=== PATIENT | female | born 1970 | race Caucasian/White ===

== ENCOUNTER 2018-09-15 16:42 | Outpatient (REF) | payer BC, SELFPAY ==
[2018-09-15 19:30] LABS: Glucose 110 mg/dL (70-100); TSH 3.48 uIU/mL (0.358-3.74)
== END 2018-09-15 17:02 ==
LOC: NCHCN 16:42
PROVIDERS: PCP Internal Medicine; Visit Provider Internal Medicine
DX: R00.2 Palpitations (principal)
CPT/HCPCS: 82947; 84443

== ENCOUNTER 2021-08-27 14:22 | Outpatient (REF) | payer BC, SELFPAY | END 2021-08-27 14:23 | disposition home or self-care (01) | LOC: NCHCN 14:22 | PROVIDERS: PCP Internal Medicine; Visit Provider Nurse Practitioner Family | DX: R30.9 Painful micturition, unspecified | CPT/HCPCS: 87086 ==

== ENCOUNTER 2023-09-08 13:21 | Outpatient (REF) | payer BC, SELFPAY | END 2023-09-08 13:22 | disposition home or self-care (01) | LOC: NCHCN 13:21 | PROVIDERS: PCP Internal Medicine; Visit Provider Physician Assistant | DX: R30.0 Dysuria (principal) | CPT/HCPCS: 87086 ==

== ENCOUNTER 2023-09-16 16:42 | Outpatient (REF) | payer BC, SELFPAY | END 2023-09-16 16:43 | disposition home or self-care (01) | LOC: NCHCN 16:42 | PROVIDERS: PCP Internal Medicine; Referring Provider Internal Medicine; Visit Provider Internal Medicine | DX: R30.0 Dysuria (principal); R82.89 Other abnormal findings on cytological and histological examination of urine | CPT/HCPCS: 87086 ==

== ENCOUNTER 2024-04-12 14:36 | Outpatient (REF) | payer BC, SELFPAY ==
--- NOTE | 2024-04-12 13:50 | SKI_PTH ---
PATIENT: Ani Cummings LOC: [facility] U#:[id number] AGE/SX: 53/F ROOM: RE04/12/[address]: Antonia Pandey : 1970 BED: DIS: 04/12/2024 SPEC #: [id number] RECD: 04/13/24 11:41 STATUS: WENDY REQ #: [id number] CINDY: 04/12/24 13:[address]: Antonia Pandey DEPT: Surgical Specimen RECD BY: Taylor Lopez ENTERED: 04/13/24 11:43 SP TYPE: LEONEL ESCALANTE DR: Cosme Muñoz Tissues: 1 - SKIN BIOPSY(SHAVE/PUNCH) Procedures: SKIN LEVEL 4 Comments: [id number]
--- OUTSIDE RECORDS SUMMARY | 2024-04-12 14:38 | XMS_ITS | Clinical Summary ---
Author Organization [facility] [place] [address] [place] [address] Care Team Providers Care Therapeutic Recreation Assistant Name Role Phone Cosme Muñoz MD Primary Care Provider Allergies No known active allergies Medications Medication Sig Dispensed Refills Start Date End Date Status multivitamin (THERAGRAN) tablet 12/25/2008 Active Ferrous Sulfate (IRON) 27 mg (Iron) Tab 12/25/2008 Active Social History Tobacco Use Types Packs/Day Years Used Date Smoking Tobacco: Never Assessed Sex and Gender Information Value Date Recorded Sex Assigned at Not on file Gender Identity Not on file Sexual Orientation Not on file Plan of Treatment Health Maintenance Due Date Last Done Comments CT Colonography 1969 Colonoscopy 1969 Colorectal Cancer Screening 1969 FIT DNA 1969 FIT 1969 Sigmoidoscopy (10 year) with FIT yearly 1969 Sigmoidoscopy 1969 HIV screen 1987 Hepatitis C Screening 1987 Hepatitis B vaccine (0-59 yrs) (1) 1988 Tetanus/Diphtheria/Pertussis Vaccines (1 - Tdap) 07/19 HPV test 1999 PAP Smear 1999 Breast Cancer Share Decision Needed 2009 Breast Cancer screening 2009 Zoster vaccine (1 of 2) 2019 Covid-19 Vaccine (1 - season) 2024 Influenza (Flu) vaccine (1 o f 1 - Influenza standard series) 03/18/2024 Care Teams Therapeutic Recreation Assistant Relationship Specialty Start Date End Date Cosme Muñoz MD [address] [place], [place] [id number] PCP - General 06/09/10
--- OUTSIDE RECORDS SUMMARY | 2024-04-12 14:38 | XMS_ITS | Referral Summary ---
Author Organization [facility] Address [address] [place] [address] Care Team Providers Care Upstairs Maid Name Role Phone Cosme Muñoz MD Primary Care Provider [phone] Social History Tobacco Use Types Packs/Day Years Used Date Smoking Tobacco: Never Assessed Sex and Gender Information Value Date Recorded Sex Assigned at Not on file Gender Identity Not on file Sexual Orientation Not on file Plan of Treatment Not on file Ani Cummings Personal/Family Self 1970 [address] [facility] [place] [address] Ani Cummings Personal/Family Self 1970 [address] [facility] [address] Ani Cummings Personal/Family Self 1970 [address] [facility] [place] [address] Care Teams Upstairs Maid Relationship Specialty Start Date End Date Cosme Muñoz MD [address] [place] [address] PCP - General 02/03/15
--- OUTSIDE RECORDS SUMMARY | 2024-04-12 14:38 | XMS_ITS | Continuity of Care Document ---
Author Organization [facility] Address [address] [place] [address] Care Team Providers Care Triage Rn Name Role Phone Cosme Damon Primary Care Physician Encounter [id number] Date(s): 06/25/22 - 06/25/[address] [address] Discharge Disposition: Home or Self Care Attending Physician: Cosme Damon MD Admitting Physician: Cosme Damon MD Referring Physician: Cosme Damon MD Allergies, Adverse Reactions, Alerts No Known Medication Allergies Immunizations Given and Recorded Vaccine Date Status Refusal Reason SARS-CoV-2 (COVID-19) mRNA-1273 vaccine 10/23/20 R ecorded SARS-CoV-2 (COVID-19) mRNA-1273 vaccine 09/25/20 R ecorded tetanus/diphth/pertuss (Tdap) adult/adol 09/30/14 Recorded rubella virus vaccine 07/18/00 Recorded varicella virus vaccine 07/18/00 Recorded Social History Social History Type Response Sex Female Patient Care team information Personnel Name: Cosme Damon MD Address: Address: [facility] [address], [place] [address]
--- OUTSIDE RECORDS SUMMARY | 2024-04-12 14:38 | XMS_ITS | Data Portability ---
Author Organization [place] [facility] [place] [address] Care Team Providers Care Scrap Preparation Supervisor Name Role Phone LASHANDA LLAMAS Dentist YOSEF BREWSTER Primary Care Provider [phone] Assessment Encounter Date Assessment Date Assessment LastModified by Organization Details LastModified Time 03/02/2024 03/02/2024 The patient presents with left shoulder pain, trouble sleeping, and numbness and tingling in the left arm. The pain has increased over time, affecting sleep and daily activities. The patient denies any specific injury but has not been careful with lifting and moving objects. Physical exam reveals tenderness in the anterior shoulder and equal strength bilaterally. [email or web address] Not available 03/02/2024 09:54:26 Plan of Treatment Reminders Order Date Submit Date Provider Last Modified By Organization Details Last Modified Time Details Appointments Acute 30 2023 01:30P M Not available Not available Not available Lab influenza virus A + B + SARS-CoV- 2 (COVID19) Ag panel, rapid IA, upper respirato ry specimen [address], [address] [place] [address], [address], 2023 16:18:35 rapid strep group A, throat [address], [address] [place] [address], [address], 2023 16:18:35 culture, urine + sensitivi ty 2023 [email or web address] (Registration ), [address] [place] [address] [place], [address], 09/15/2023 07:37:52 urinalysi s, dipstick 2023 024 [email or web address] [facility], [address] [facility] [address], [place], [address], 09/08/2023 11:15:13 urinalysi s, dipstick 2023 024 [email or web address] [facility], [address] [facility] [address], [place], [address], 09/16/2023 14:05:33 culture + sensitivi ty, urine 2023 024 [email or web address] (Registration ), [address] [place] [address] [place], [address], 09/23/2023 07:19:04 Referral physical therapist referral 2023 024 [facility], [address] [facility] , [facility] [address], [place], [address], 04/09/2024 14:38:14 Procedures None recorded. Surgeries None recorded. Imaging XR, shoulder, 2 or more view 2023 024 [facility], [address], [place], [address], 03/07/2024 11:42:20 Medication Orders Bactrim DS 800 mg-160 mg tablet 2023 024 [facility], [address], [place], [place], [id number], 03/02/2024 08:09:46 Patient TargetsNo targets recorded. Patient Instructions Encounter Date Encounter Id Patient Instructions Last Modified By Organization Details Last Modified Time 2023 [id number] Push fluids, and take it easy. You are negative for COVID, FLU, and Strep. Push the fluids and use warm packs to your left eye. If no continued improvement please let me know and I will send in eye drops. If no improvement in the rest of your symptoms, please let me know [email or web address] Not available 2023 15:01:52 09/08/2023 [id number] Drink lots of fluids, your urine should have little or no color Take antibiotics until completed, unless you are told to stop by a provider Nitish immediately if you develop fevers, chills, nausea, vomiting, blood in urine or back/flank pain Call back if you are not improving in 24-48 hours [email or web address] Not available 09/08/2023 10:58:18 03/02/2024 [id number] netflix- hack your health the secret to gut health tubi- fed up gluten and dairy free or limit as much as possible increase fruits, vegetables, lean meats, nuts, seeds and eggs. rubi bread in freezer section. The probiotic can be either a supplement or through foods such as kombucha, sally chi, sacindykraut, probiotic juice shots Go to {{[facility] ([facility])* Nisa gaitan [facility] ([facility]) [facility] ([facility]) [facility] ([facility]) [facility] ([facility]) [facility]}} for {{fasting blood work (water or black coffee only for at least 8 hours) bloodwork X-ray* }} (no appointment needed), please allow up to 2 weeks to hear about results A referral has been placed for {{Allergy Audiolo gy Bariatric Card iology Colonoscop y Media Job Titles Endoc rinology ENT Reba roenterology Gene ral Surgery Genetics Hematology/Oncolo gy Nephrology Saira rology CLINICAL STAFF RN Opt ometry/Ophthalmol ogy [facility]oped[facility] Physical [facility]* Podiatry Psychiatry Pulmo nology Rheumatolo gy Sleep Clinic Spine Clinic Urology Va scular Surgery}} at {{[facility] ([facility])* Nisa rn [facility] ([facility]) [facility] ([facility]) [facility] ([facility]) [facility] ([facility]) [facility] ([facility]) [facility]}}. If you do not receive a call to schedule an appointment in 7-10 days, please contact our coding quality coordinator at Call with any questions or concerns lexus Not available 03/02/2024 08:38:49 Reason for Referral Physical Therapist Referral for Pain of left shoulder joint Referring Physician: Antonia Stewart, Family Medicine, Encounter Date: 03/02/2024 Results Created Date Observation Date Name Description Value Unit Range Abnormal Flag Note LastModifiedBy Organization Detail LastModifiedTime 07/19/19 24 2023 influ nathalia virus A + B + SARS- CoV-2 (COVI D19) Ag panel , rapid IA, upper respi rator y speci men Influenza A negati ve Not Available [address], [address], 2023 14:44:47 07/19/19 24 2023 influ nathalia virus A + B + SARS- CoV-2 (COVI D19) Ag panel , rapid IA, upper respi rator y speci men Influenza B negati ve Not Available [address] [address], [place], [address], 2023 14:44:47 07/19/19 24 2023 influ nathalia virus A + B + SARS- CoV-2 (COVI D19) Ag panel , rapid IA, upper respi rator y speci men SARS-COV-2 negati ve Not Available [address], [place], [address], 2023 14:44:47 07/19/19 24 2023 rapid strep group A, throa t Strep negati ve Not Available [facility] [address] [facility] [address], [place], [address], 2023 14:44:58 09/08/19 24 09/09/2023 URINE CULTU RE urine culture Urine Cultu re APPEA FELICIANO Gram Negat scarlet Ayleen APPEA FELICIANO Mixed Gram Posit scarlet Isabelle COLON Y COUNT Not Available [address] [place], [address] 09/09/2023 07:57:14 09/08/19 24 09/09/2023 URINE CULTU RE urine culture colon ies/m L <10,0 00 COLON Y COUNT <10,0 00 Day 1 Resul t ISOLA NIKOLAY BELOW O:GNR (ORGA NISM ID: 1.1) - GRAM NEGAT SCARLET AYLEEN Urine Cultu re (ORGA NISM ID: 1.1) - COLON Y COUNT (ORGA NISM ID: 1.1) - <10,0 00 O:GPF M (ORGA NISM ID: 1.2) - GRAM POSIT SCARLET ISABELLE ,MIXE D Urine Cultu re (ORGA NISM ID: 1.2) - COLON Y COUNT (ORGA NISM ID: 1.2) - <10,0 00 Not Available [address] [place], [address] 09/09/2023 07:57:14 09/08/19 24 09/10/2023 URINE CULTU RE urine culture Urine Cultu re Proba ble conta minat ed colle ction APPEA FELICIANO Gram Negat scarlet Ayleen APPEA FELICIANO Mixed Gram Posit scarlet Isabelle APPEA FELICIANO Gram Negat scarlet Ayleen APPEA FELICIANO Mixed Gram Posit scarlet Isabelle COLON Y COUNT Not Available [address] [place], [address] 09/10/2023 08:09:14 09/08/19 24 09/10/2023 URINE CULTU RE urine culture colon ies/m L <10,0 00 COLON Y COUNT <10,0 00 COLON Y COUNT <10,0 00 COLON Y COUNT 10,00 0 - 50,00 0 Day 1 Resul t ISOLA NIKOLAY BELOW Day 2 Resul t ISOLA NIKOLAY BELOW O:GNR (ORGA NISM ID: 1.1) - GRAM NEGAT SCARLET AYLEEN Urine Cultu re (ORGA NISM ID: 1.1) - COLON Y COUNT (ORGA NISM ID: 1.1) - <10,0 00 O:GPF M (ORGA NISM ID: 1.2) - GRAM POSIT SCARLET ISABELLE ,MIXE D Urine Cultu re (ORGA NISM ID: 1.2) - COLON Y COUNT (ORGA NISM ID: 1.2) - 10,00 0 - 50,00 0 Not Available [facility] [address] [place], [address] 09/10/2023 08:09:14 09/08/19 24 09/08/2023 urina lysis , dipst ick Leukocytes Modera te Not Available [address], [address], 09/08/2023 11:13:06 09/08/19 24 09/08/2023 urina lysis , dipst ick Nitrite negati ve Not Available [facility] [address], [address], 09/08/2023 11:13:06 09/08/19 24 09/08/2023 urina lysis , dipst ick Urobilinogen .2 Not Available [address], [address], 09/08/2023 11:13:06 09/08/19 24 09/08/2023 urina lysis , dipst ick Protein Trace Not Available [address], [address], 09/08/2023 11:13:06 09/08/19 24 09/08/2023 urina lysis , dipst ick pH 5.0 Not Available [address] [place], [address], 09/08/2023 11:13:06 09/08/19 24 09/08/2023 urina lysis , dipst ick Blood Large Not Available [facility] [address] [facility] [address], [place], [address], 09/08/2023 11:13:06 09/08/19 24 09/08/2023 urina lysis , dipst ick Specific [place] 1.025 Not Available [facility] [address] [facility] [address], [place], [address], 09/08/2023 11:13:06 09/08/19 24 09/08/2023 urina lysis , dipst ick Ketone Negati ve Not Available [facility] [address] [facility] [address], [place], [address], 09/08/2023 11:13:06 09/08/19 24 09/08/2023 urina lysis , dipst ick Bilirubin Negati ve Not Available [facility] [address] [facility] [address], [place], [address], 09/08/2023 11:13:06 09/08/19 24 09/08/2023 urina lysis , dipst ick Glucose Negati ve Not Available [facility] [address] [facility] [address], [place], [address], 09/08/2023 11:13:06 09/08/19 24 09/08/2023 urina lysis , dipst ick Appearance Cloudy Not Available [facility] [address] [facility] [address], [place], [address], 09/08/2023 11:13:06 09/08/19 24 09/08/2023 urina lysis , dipst ick Color Dark Yellow Not Available [facility] [address] [address], [place], [address], 09/08/2023 11:13:06 09/16/19 24 09/17/2023 URINE CULTU RE urine culture Urine Cultu re Day 1 Resul t NO GROWT H 24 HOURS Not Available [address] [place], [address] 09/17/2023 06:58:17 09/16/19 24 09/18/2023 URINE CULTU RE urine culture Urine Cultu re APPEA FELICIANO Mixed Gram Posit scarlet Isabelle COLON Y COUNT Not Available [address] [place], [address] 09/18/2023 07:56:30 09/16/19 24 09/18/2023 URINE CULTU RE urine culture colon ies/m L <10,0 00 Day 1 Resul t NO GROWT H 24 HOURS Day 2 Resul t ISOLA NIKOLAY BELOW O:GPF M (ORGA NISM ID: 1.1) - GRAM POSIT SCARLET ISABELLE ,MIXE D Urine Cultu re (ORGA NISM ID: 1.1) - COLON Y COUNT (ORGA NISM ID: 1.1) - <10,0 00 Not Available [address] [place], [address] 09/18/2023 07:56:30 09/16/19 24 09/16/2023 urina lysis , dipst ick Leukocytes Trace Not Available [facility] [address] [address], [place], [address], 09/16/2023 13:55:30 09/16/19 24 09/16/2023 urina lysis , dipst ick Nitrite negati ve Not Available [facility] [address], [address], 09/16/2023 13:55:30 09/16/19 24 09/16/2023 urina lysis , dipst ick Urobilinogen .2 Not Available [facility] [address] [address], [place], [address], 09/16/2023 13:55:30 09/16/19 24 09/16/2023 urina lysis , dipst ick Protein Negati ve Not Available [facility] [address] [facility] [address], [place], [address], 09/16/2023 13:55:30 09/16/19 24 09/16/2023 urina lysis , dipst ick pH 6.0 Not Available [facility] [address] [facility] [address], [place], [address], 09/16/2023 13:55:30 09/16/19 24 09/16/2023 urina lysis , dipst ick Blood Negati ve Not Available [facility] [address] [facility] [address], [place], [address], 09/16/2023 13:55:30 09/16/19 24 09/16/2023 urina lysis , dipst ick Specific [place] 1.010 Not Available [facility] [address] [facility] [address], [place], [address], 09/16/2023 13:55:30 09/16/19 24 09/16/2023 urina lysis , dipst ick Ketone Negati ve Not Available [facility] [address] [facility] [address], [place], [address], 09/16/2023 13:55:30 09/16/19 24 09/16/2023 urina lysis , dipst ick Bilirubin Negati ve Not Available [facility] [address] [facility] [address], [place], [address], 09/16/2023 13:55:30 09/16/19 24 09/16/2023 urina lysis , dipst ick Glucose Negati ve Not Available [facility] [address] [facility] [address], [place], [address], 09/16/2023 13:55:30 09/16/19 24 09/16/2023 urina lysis , dipst ick Appearance Clear Not Available [facility] [address] [facility] [address], [place], [address], 09/16/2023 13:55:30 09/16/19 24 09/16/2023 urina lysis , dipst ick Color Pale Yellow Not Available [facility] [address] [facility] [address], [place], [address], 09/16/2023 13:55:30 03/07/20 24 03/05/2024 XR, shoul victorino, 2 or more view PROCED URE INFORM ATION: Exam: XR Left Should er Exam date and time: 024 8:12 AM Age: 53 years old Clinic al indica tion: Left should er pain TECHNI QUE: Imagin g protoc ol: Radiol ogic exam of the left should er. Views: 2 or more views. COMPAR SANJU: CT SPINE CERVIC AL WO CONTRA ST 09/24/19 10:39 AM FINDIN GS: Bones/ joints : The glenoh umeral and acromi oclavi cular joints are normal ly aligne d. No acute fractu re is seen. Mild joint space narrow ing in the acromi oclavi cular joint. No signif icant joint space narrow ing or osteop hytic format ion in the glenoh umeral joint. Lungs: Visual ized portio ns of the chest are normal . Soft tissue s: Unrema rkable . IMPRES MADELIN: 1. No eviden ce of acute fractu re or disloc ation. 2. Minima l degene rative change s in the acromi oclavi cular joint. Report signed by: Gurdeep Gaines On 2023 11:40: 47 [facility] [address], [place], [address], 03/07/2024 21:44:53 03/30/2011/13/2018 MAMMO , tomos ynthe sis, bilat eral No observ ation record ed. Not Available 03/30 00:59:02 03/30/20 24 11/24/2020 MAMMO , tomos ynthe sis, bilat eral No observ ation record ed. Not Available 03/30 00:59:03 03/30/20 24 06/25/2022 MAMMO , tomos ynthe sis, bilat eral No observ ation record ed. Not Available 03/30 00:59:05 03/30/20 24 06/28/2022 MAMMO , diagn ostic No observ ation record ed. Not Available 03/30 00:59:06 03/30/20 24 06/25/2022 MAMMO , diagn ostic No observ ation record ed. Not Available 03/30 00:59:07 03/30/20 24 09/15/2018 imagi ng/di agnos tic resul t No observ ation record ed. Not Available 03/30 00:59:11 03/30/20 24 07/01/2020 imagi ng/di agnos tic resul t No observ ation record ed. Not Available 03/30 00:59:13 03/30/20 24 05/13/2023 imagi ng/di agnos tic resul t No observ ation record ed. Not Available 03/30 00:59:36 03/30/20 24 09/23/2020 imagi ng/di agnos tic resul t No observ ation record ed. Not Available 03/30 00:59:38 03/30/20 24 06/28/2022 MAMMO , diagn ostic , unila teral No observ ation record ed. Not Available 03/30 00:59:39 03/30/20 24 09/23/2020 CT, brain , w/o contr ast No observ ation record ed. Not Available 03/30 00:59:40 03/30/20 24 07/01/2021 US, pelvi c wall No observ ation record ed. Not Available 03/30 00:59:41 03/30/20 24 05/13/2023 XR, spine No observ ation record ed. Not Available 03/30 00:59:43 Result Notes Documentation Provider Name and Address Organization Details Recorded Time Xr, Shoulder, 2 Or More View : PROCEDURE INFORMATION: Exam: XR Left Shoulder Exam date and time: 03/05/2024 8:12 AM Age: 53 years old Clinical indication: Left shoulder pain TECHNIQUE: Imaging protocol: Radiologic exam of the left shoulder. Views: 2 or more views. COMPARISON: CT SPINE CERVICAL WO CONTRAST 09/23/2020 10:39 AM FINDINGS: Bones/joints: The glenohumeral and acromioclavicular joints are normally aligned. No acute fracture is seen. Mild joint space narrowing in the acromioclavicular joint. No significant joint space narrowing or osteophytic formation in the glenohumeral joint. Lungs: Visualized portions of the chest are normal. Soft tissues: Unremarkable. IMPRESSION: 1. No evidence of acute fracture or dislocation. 2. Minimal degenerative changes in the acromioclavicular joint. Report signed by: Gurdeep Gaines On 03/07/2024 11:40:47 YOSEF BREWSTER MD [address], [place], [address], [facility]. 03/07/2024 15:16:08 Problems Name Problem SNOMED Code Status Onset Date Resolution Date Notes Provider Name and Address Organization Details Recorded Time Family history of malignan t neoplasm of digestiv e organ 407938984 Active 2009 Problem Code: Z80.0; Problem Code Type: ICD-10; Not Available [facility] 3 05:18:17 Acquired absence of cervix and uterus 824472921 Active 2009 Problem Code: Z90.710; Problem Code Type: ICD-10; Not Available [facility] 3 05:18:18 Eczema 38938883 Active 2014 Problem Code: L30.9; Problem Code Type: ICD-10; Not Available [facility] 3 05:18:18 Chronic sinusiti s 41115232 Completed 201612/19/2016 Problem Code: J32.9; Problem Code Type: ICD-10; Not Available [facility] 3 05:18:18 Migraine with aura 5946712 Active 201709/16/19 19 - Comments only - Yosef Brewster MD - Renewed her Imitrex. Pointed out that fluoxeti ne may even service [facility] medicine and reduce the migraine . Problem Code: G43.109; Problem Code Type: ICD-10; Not Available [facility] 3 05:18:18 Effusion of joint of right knee 03362061674 9104 Active 201709/10/19 18 - Comments only - Adeola Felix ASSOCIATE PROFESSOR OF MANAGEMENT - No obvious injury, no joint laxity, there is some swelling and possibly fluid on the knee. Will obtain x-ray, consider ortho for drainage if needed. PT referral . Problem Code: M25.461; Problem Code Type: ICD-10; Not Available [facility] 3 05:18:18 Plantar fascial fibromat osis 88768148 Active 201709/10/19 18 - Comments only - Adeola Felix ASSOCIATE PROFESSOR OF MANAGEMENT - Reviewed rolling with water bottle or tennis ball, ice to relieve discomfo rt, supporti ve shoes. PT referral . Problem Code: M72.2; Problem Code Type: ICD-10; Not Available [facility] 3 05:18:18 Acute conjunct ivitis of left eye [id number] 9105 Completed 201701/05/2018 11/25/19 18 - Comments only - Haris Umana PA-C - Reviewed with the patient that most conjunct ivitis is viral. At this time she would like to start antibiot ics. Advised good handwash ing. Recheck if not improvin g or for any visual changes. Problem Code: H10.32; Problem Code Type: ICD-10; Not Available [facility] 3 05:18:18 Palpitat ions 93266847 Completed 201809/16/2018 09/16/19 19 - Comments only - Yosef Brewster MD - And atypical chest pain, pretty clearly associat ed with her anxiety. She has virtuall y no risk factors, normal EKG, history not suggesti ve of CAD, and I do not think she needs other testing. Problem Code: R00.2; Problem Code Type: ICD-10; Not Available [facility] 05:18:18 Anxiety 92321269 Active 201811/04/19 19 - Comments only - Yosef Brewster MD - Ani his depressi on has clearly been episodic , but I recommen d that she stay on treatmen t for 4-6 months total. Is generall y best to wean off during the summer, therefor e we will plan to have her reduce fluoxeti ne to 10 mg daily in January, and then disconti nue it in February. She is seeing Naldo as well and that is going well. I am not going to see her back then unless she is having trouble, but will count I am seeing her for HME around May , so we can make sure that she is not sliding downward again then. Problem Code: F41.8; Problem Code Type: ICD-10; Not Available [facility] 3 05:18:18 Obesity 433798802 Active 201811/04/19 19 - Comments only - Yosef Brewster MD - Doing great with lifestyl e change and is motivate d to continue . Strong family history of DM, she should have fasting glucose at least annually . It was elevated to prediabe tic levels in September. Problem Code: E66.9; Problem Code Type: ICD-10; Not Available [facility] 3 05:18:18 Screenin g mammogra phy Active 201811/04/19 19 - Comments only - Yosef Brewster MD - Overdue for mammogra m which I ordered. She does not need Pap due to hysterec cintia, but will have her physical this fall as above Problem Code: Z12.31; Problem Code Type: ICD-10; Not Available [facility] 3 05:18:18 Varicose veins of bilatera l lower limbs [id number] 807462 Active 2018 Problem Code: I83.93; Problem Code Type: ICD-10; Not Available [facility] 3 05:18:19 Guttate psoriasi s 58463103 Active 2018 Problem Code: L40.4; Problem Code Type: ICD-10; Not Available [facility] 3 05:18:19 Adult health examinat ines Active 2018 Problem Code: Z00.00; Problem Code Type: ICD-10; Not Available [facility] 3 05:18:19 Gastroes ophageal reflux disease without esophagi tis 255454543 Active 201907/06/20 20 - Comments only - Adeola Poginchristy ASSOCIATE PROFESSOR OF MANAGEMENT - Symptoms of burning in the throat and occasion ally the chest. Worse with certain foods but she has not complete ly kept track. She knows weight gain has not helped either. EKG is normal today. Trial of Nexium every other day. Discusse d importan t trigger foods to avoid. Follow-u p if not improvin g. Problem Code: K21.9; Problem Code Type: ICD-10; Not Available [facility] 3 05:18:19 Dysuria 34359669 Completed 202108/29/2021 08/27/19 22 - Comments only - Keyana Chute ASSOCIATE PROFESSOR OF MANAGEMENT - Dysuria . Urine quite dilute, negative blood, pos WBC. will send for c/s and start nitrofur antoin Ani will let us know INI sx increase . Urine positive for Ketones she has been eating high protein diet in successf ul attempt at weight loss. Problem Code: R30.9; Problem Code Type: ICD-10; Not Available [facility] 3 05:18:19 Abnormal weight loss 586102674 Active 202108/27/19 22 - Comments only - Keyana Chute ASSOCIATE PROFESSOR OF MANAGEMENT - Down about 6.5 pounds since last visit. Ketosuri a due to high protein diet. Discusse d plant based diet as likely more sustaina ble. Problem Code: R63.4; Problem Code Type: ICD-10; Not Available [facility] 3 05:18:19 Counseli ng Active 2021 Problem Code: Z71.89; Problem Code Type: ICD-10; Not Available [facility] 3 05:18:19 Inconclu sive mammogra phy finding 81563453707 9104 Active 2021 Problem Code: R92.2; Problem Code Type: ICD-10; Not Available [facility] 3 05:18:19 Melanocy tic nevus 674780037 Completed 201409/02/2017 Problem Code: D22.9; Problem Code Type: ICD-10; Not Available [facility] 3 05:18:19 Hand pain 60641625 Completed 201509/02/2017 Problem Code: M79.643; Problem Code Type: ICD-10; Not Available [facility] 3 05:18:20 Abnormal finding on evaluati on procedur e 882008105 Completed 201609/02/2017 Problem Code: R89.9; Problem Code Type: ICD-10; Not Available [facility] 3 05:18:20 Irritabl e bowel syndrome 75117045 Completed 201004/13/2023 Not Available [facility] 3 05:18:20 Pain of left wrist 93847514275 9102 Completed 201509/02/2017 Problem Code: M25.532; Problem Code Type: ICD-10; Not Available [facility] 3 05:18:20 Retentio n of urine 311759306 Completed 200804/13/2023 Not Available [facility] 3 05:18:20 Paresthe lowell 56396806 Completed 201609/02/2017 Problem Code: R20.2; Problem Code Type: ICD-10; Not Available [facility] 3 05:18:20 Family history of cancer of colon 559277743 Completed 200904/13/2023 Not Available [facility] 3 05:18:20 Upper respirat ory infectio n 37228506 Active [address], [place], [address] , [facility]. 4 15:00:09 Cough 59936591 Active 2023 KEYANA LANTIGUA, [address], [place], [address] , [place] - [facility]. 4 16:23:23 Cough 03807858 Completed 202204/27/2023 04/26/20 23 - Comments only - Antonia MCMILLAN - Negative COVID and flu. O2 sats were normal at 98%. Benign exam. Likely viral. Recommen ded nasal saline rinses and Flonase over-the -counter . Plenty of rest and fluids. Tylenol or ibuprofe n as needed for pain/fev er. Discusse d signs and symptoms to follow-u p. Patient understa nds agrees with plan. Problem Code: R05.8; Problem Code Type: ICD-10; Not Available [facility] 4 05:37:22 Low back pain 660443198 Active 2022 Problem Code: M54.59; Problem Code Type: ICD-10; Not Available [facility] 4 05:37:22 Pain of left hip joint 60526867924 9100 Active 2022 Problem Code: M25.552; Problem Code Type: ICD-10; Not Available [facility] 4 05:37:22 Dyspnea 098194282 Completed 202206/28/2023 Problem Code: R06.02; Problem Code Type: ICD-10; Not Available [facility] 4 05:37:23 Notes:*Problem Name: Abd Hys t For Fibroids *ICD-10 Codes: *Problem Status: inactive *Comments: *Note Date: 06/26/2010 *Problem Name: Kydney Stones *ICD-10 Codes: *Problem Status: inactive *Comments: *Note Date: 08/02/2011 *Problem Name: Kydney Stones *ICD-10 Codes: *Problem Status: inactive *Comments: *Problem Code Type: CPT *Note Date: 08/02/2011 Problem Notes None recorded. Procedures Surgical History Date Name Laterality Status Provider Name and Address Organization Details Recorded Time 4 Shave Biopsy active ANTONIA STEWART PA-C [address], [place], [address], [place] [facility] 04/12/2024 14:19:14 hysterectomy completed JAY ZAVALA [place] [facility]. 09/08/2023 10:35:44 Imaging Results Imaging Date Name Status LastModified by Organiz ation Details LastModified Time 03/05/2024 XR, shoulder, 2 or more view completed [facility] [address], [place], [address], 03/07/2024 21:44:53 11/13/2018 MAMMO, tomosynthesis, bilateral completed Information not available 03/30/2024 00:59:02 11/24/2020 MAMMO, tomosynthesis, bilateral completed Information not available 03/30/2024 00:59:03 06/25/2022 MAMMO, tomosynthesis, bilateral completed Information not available 03/30/2024 00:59:05 06/28/2022 MAMMO, diagnostic completed Information not available 03/30/2024 00:59:06 06/25/2022 MAMMO, diagnostic completed Information not available 03/30/2024 00:59:07 09/15/2018 imaging/diagnos tic result completed Information not available 03/30/2024 00:59:11 07/01/2020 imaging/diagnos tic result completed Information not available 03/30/2024 00:59:13 05/13/2023 imaging/diagnos tic result completed Information not available 03/30/2024 00:59:36 09/23/2020 imaging/diagnos tic result completed Information not available 03/30/2024 00:59:38 06/28/2022 MAMMO, diagnostic, unilateral completed Information not available 03/30/2024 00:59:39 09/23/2020 CT, brain, w/o contrast completed Information not available 03/30/2024 00:59:40 07/01/2021 US, pelvic wall completed Informati on not available 03/30/2024 00:59:41 05/13/2023 XR, spine completed Information no t available 03/30/2024 00:59:43 Procedure Notes None recorded. Medical Equipment None Reported. Allergies Allergen ID Allergen Name Allergen Category Reaction Reaction Severity Criticality Documentation Date Start Date Code Code System Note Provider Name and Address Organization Details Recorded Time 55843 Medicinal product containin g penicilli n and acting as antibacte rial agent (product) medicatio n itching Not available Not available 2023 09564 05 SNOMED JUAN BEATTY LPN [facility]. 14:42:52 Medications Name Sig Start Date Stop Date Status Note LastModified by Organization Details LastModified Time Prescript ion - Renewal 04/12 completed SUMATRIP NOEL SUCCINAT E 50 MG ORAL TABLET Not Available Not Available Not Available clindamyc in HCl 300 mg capsule 07/19 completed Not Available Not Available Not Available ibuprofen 800 mg tablet 1 three times daily 11/08 completed Not Available Not Available Not Available fluticaso ne propionat e 0.05 % topical cream Apply daily to affected area as directed : L ankle 07/01 completed Not Available Not Available Not Available Zithromax 250 mg tablet Take 2 by mouth today, then take 1 by mouth daily x 4 days 11/23 completed Not Available Not Available Not Available sumatript an 50 mg tablet TAKE 1 TABLET BY MOUTH AT ONSET OF MIGRAINE . MAY REPEAT IN 2 HOURS FOR 1 TIME 2023 active Not Available Not Available Not Avai lable penicilli n V potassium 500 mg tablet Take one tab by mouth three times a day 07/19 completed Not Available Not Available Not Available amitripty line 25 mg tablet 1 hs 09/20 completed Not Available Not Available Not Available erythromy osmany 5 mg/gram (0.5 %) eye ointment Apply to affected eye(s) three times a day Fill at IP 12/04 completed Not Available Not Available Not Available triamcino lone acetonide 0.1 % topical ointment Apply to skin once a day 07/19 completed Not Available Not Available Not Available fluoxetin e 10 mg capsule Take 1 tab by mouth daily for one month then stop the drug ( in January) 06/08 completed Not Available Not Available Not Available lorazepam 1 mg tablet Take 1.5 tablet by mouth single dose 30-60 min before flight,r epeat for return trip. Do not mix with any alcohol 11/06 completed Not Available Not Available Not Available fluoxetin e 20 mg capsule Take 1 tab by mouth daily 06/08 completed Not Available Not Available Not Available loratadin e 10 mg tablet 1 daily 07/02 completed Not Available Not Available Not Available naproxen 500 mg tablet Take 1 tablet twice daily as needed 07/01 completed Not Available Not Available Not Available Flexeril 10 mg tablet 1 TAB at bedtime 12/30 completed Not Available Not Available Not Available esomepraz ole magnesium 20 mg capsule,d elayed release Take 1 capsule by mouth every other day 07/19 completed Not Available Not Available Not Available Bactrim DS 800 mg-160 mg tablet 1 TAB twice daily for 7 days 03/02 completed Not Available Not Available Not Available cyclobenz aprine 5 mg tablet Take 1-2 tablet by mouth at bedtime as needed for low back pain 09/08 completed pt reports not taking Not Available Not Available Not Available Premarin 0.625 mg tablet Take 1 tab by mouth once daily 11/18 completed Pt unsure of dose. Will call with [employer]. Not Available Not Available Not Available nitrofura ntoin monohydra te/macroc rystals 100 mg capsule Take 1 capsule by mouth twice a day 07/19 completed Not Available Not Available Not Available Questran Light 1-2 scoops qd 12/02 completed Not Available Not Available Not Available Vitals Date Recorded Body temperature Oxygen saturation Oxygen saturation in Arterial blood by Pulse oximetry Heart rate Respiratory rate Systolic blood pressure Diastolic blood pressure Provider Name and Address Organization Details Last Updated DateTime 4 97.7 [degF] 99 % 99 % 72 /min 18 /min 142 mm[Hg] 100 mm[Hg] JUAN BEATTY LPN [facility] 4 14:41:55 Date Recorded Body height Body mass index (BMI) Body weight Oxygen saturation Oxygen saturation in Arterial blood by Pulse oximetry Heart rate Body temperature Systolic blood pressure Diastolic blood pressure Provider Name and Address Organization Details Last Updated DateTime 4 159.385 cm 37.2 kg/m2 53312.3 7 g 96 % 96 % 72 /min 98.5 [degF] 124 mm[Hg] 68 mm[Hg] JAY ZAVALA MA [facility] 4 10:37:19 Date Recorded Body height Body mass index (BMI) Body weight Oxygen saturation Oxygen saturation in Arterial blood by Pulse oximetry Heart rate Systolic blood pressure Diastolic blood pressure Provider Name and Address Organization Details Last Updated DateTime 4 159.39 cm 36.2 kg/m2 87739.9 2 g 95 % 95 % 76 /min 120 mm[Hg] 72 mm[Hg] Francois Fermin RN [facility] 4 08:11:03 Date Recorded Body height Body mass index (BMI) Body weight Body temperature Respiratory rate Oxygen saturation Oxygen saturation in Arterial blood by Pulse oximetry Heart rate Systolic blood pressure Diastolic blood pressure Provider Name and Address Organization Details Last Updated DateTime 4 159.39 cm 36.6 kg/m2 02462.4 4 g 97.2 [degF] 18 /min 98 % 98 % 80 /min 110 mm[Hg] 60 mm[Hg] JUAN BEATTY LPN [facility], [facility] 4 13:36:58 Social History Question Answer Notes LastModified by Organizat ion Details LastModified Time Tobacco Smoking Status Never Smoker JUAN BEATTY LPN [facility], [facility], [facility] 2023 14:45:11 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 04/12/2024 Information not available 04/12/2024 Has Tobacco Cessation Counseling Been Provided? No Information not available 04/12/2024 Sex: Female Functional Status None recorded. Mental Status None recorded. Family History Relationship Description Onset Age of this Age Resolved Age Notes LastModified by Organization Details LastModified Time Mother Family history of Arthritis [email or web address] Not available 2022 03:52:25 Mother Family history of malignant neoplasm of uterus [email or web address] Not available 2022 03:52:25 Mother Family history of heart failure [email or web address] Not available 2022 03:52:26 Mother Family history of diabetes mellitus type 1 [email or web address] Not available 2022 03:52:26 Father Family history of cancer of colon [email or web address] Not available 2022 03:52:25 Notes:*Problem: Father: DM, 2002 r/t colon Ca. Medical History No medical history recorded. Gynecological HistoryNo gynecological history recorded. Obstetrics History GPAL:G 0 P 0 0 0 0 Immunizations Vaccine Type Date Status Provider Name and Address Organization Details Recorded Time Tdap 09/20/2012 completed Not Available [facility] 06:02:42 Influenza, split virus, quadrivalent, PF 04/23/2020 completed Not Available [facility] 05/27/2023 06:02:42 Influenza, split virus, quadrivalent, PF 06/08/2019 completed Not Available [facility] 05/27/2023 06:02:42 Influenza, split virus, quadrivalent, PF 06/29/2022 completed Not Available [facility] 05/27/2023 06:02:42 Influenza, split virus, quadrivalent, PF 07/09/2021 completed Not Available [facility] 05/27/2023 06:02:42 COVID-19, mRNA, LNP-S, PF, 100 mcg/0.5mL dose or 50 mcg/0.25mL dose 09/25/2020 completed Not Available [facility] 05/27/2023 06:02:42 COVID-19, mRNA, LNP-S, PF, 100 mcg/0.5mL dose or 50 mcg/0.25mL dose 10/23/2020 completed Not Available [facility] 05/27/2023 06:02:42 COVID-19, mRNA, LNP-S, PF, 100 mcg/0.5mL dose or 50 mcg/0.25mL dose 05/19/2021 completed Not Available [facility] 05/27/2023 06:02:42 COVID-19, mRNA, LNP-S, bivalent, PF, 30 mcg/0.3 mL dose 06/29/2022 completed Not Available [facility] 05/27/2023 06:02:43 Influenza, split virus, quadrivalent, PF 05/11/2023 completed Not Available [facility] 07/29/2023 05:31:26 COVID-19, mRNA, LNP-S, PF, tj-sucrose, 30 mcg/0.3 mL 05/11/2023 completed Not Available [facility] 07/29/2023 05:31:26 Past Encounters Encounter ID Performer Location Encounter Start Date Encounter Closed Date Diagnosis/Indication Diagnosis SNOMED-CT Code Diagnosis ICD10 Code [id number] NITIN BENÍTEZ[address] [address] 2023 14:34:57 2023 15:03:39 Cough 80561429 R05.9 Upper resp iratory infection 50942282 J06.9 [id number] ANTONIA STEWART [address] [address] 09/08/2023 10:25:33 09/08/2023 10:56:03 Dysuria 91999072 R30.0 [id number] Francois Fermin RN [address] [address] 09/16/2023 13:37:40 09/16/2023 14:04:11 Dysuria 18227970 R30.0 [id number] ANTONIA STEWART [address] [address] 03/02/2024 08:00:46 03/02/2024 08:42:21 Pain of left shoulder joint 9726385162 4799522 M25.512 Obesity 221295220 E66.9 [id number] ANTONIA STEWART PA-C [facility] [address] [place] [address] 04/12/2024 13:33:49 04/12/2024 14:04:51 Migraine with aura 6263557 G43.109 Neoplasm o f uncertain behavior of skin 42100843 D48.5 Health Concerns Section Related Observation LastModified by Organization Detai ls LastModified Time None Recorded Concern Status LastModified by Organization Details LastModified Time None Recorded Advance Directives Directive None Recorded Payers Encounter Date Sequence Insurance Name Policy Number Policy Verma Covered Member ID Verma Member ID Guarantor Name 2023 1 [place] [facility] [id number] Ani L Cummings [id number] Ani L Cummings 09/08/2023 1 [place] [facility] [id number] Ani L Cummings [id number] Ani L Cummings 09/16/2023 1 [place] [facility] [id number] Ani L Cummings [id number] Ani L Cummings 03/02/2024 1 [place] [facility] [id number] Ani L Cummings [id number] Ani L Cummings Notes Date Note Type Note Provider Name and Address Organization Details Recorded Time 2023 text/html HPI Notes: cc So re throat, itchy eye., sinus pain Sinus pain and rhinitis started last week, has been having PND. Seemed to get better, now worse again. No fever, has had chills and feels achy. 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 Patient states symptoms started Harrison naren. Sinus headache and runny nose. Questions sinus infection [address], [place], [address], [place] [facility]. 2023 16:24:06 09/08/2023 text/html HPI Notes: CC: U TI Symptoms. Pt reports burning w/ urination along with back pain on and off for the last two weeks. She is also experiencing increased frequency, urgency, and pain. She saw blood in her urine this morning and decided she needed to come in. Has taken OTC Cystex. with some relief of symptoms. She describes her back pain as an ache going across her back along the area of her bra strap. She took motrin a couple of nights with relief. She denies fevers/chills, has been experiencing increased sweatiness. Denies abd pain, nausea, vomiting, diarrhea. [address], [place], [address], [facility] 09/08/2023 11:31:57 03/02/2024 text/html HPI Notes: Stacy epstein presents with left shoulder pain, trouble sleeping, numbness and tingling in left arm, and interest in weight loss. Left shoulder pain: Patient started experiencing left shoulder pain in late spring. Initially, there was limited movement but now the pain has increased. The patient has trouble sleeping and cannot sleep on the left shoulder. Holding objects and reaching in certain directions are uncomfortable. The pain sometimes radiates to the clavicle and down the arm. The patient denies any specific injury but admits to not being careful with lifting or moving objects. Patient has been taking Motrin 800mg BID and Salonpas to help with pain relief. 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
--- OUTSIDE RECORDS SUMMARY | 2024-04-12 14:38 | XMS_ITS | Clinical Summary ---
Author Organization [facility] Address [address] [place] [address] Care Team Providers Care Cartography Supervisor Name Role Phone Cosme Muñoz MD Primary Care Provider [phone] Social History Tobacco Use Types Packs/Day Years Used Date Smoking Tobacco: Never Assessed Sex and Gender Information Value Date Recorded Sex Assigned at Not on file Gender Identity Not on file Sexual Orientation Not on file Plan of Treatment Health Maintenance Due Date Last Done Comments Hepatitis C Screen 1970 Hepatitis B Vaccine (1 of 3 - 19+ 3-dose series) 07/19 COVID-19 Vaccine (2022- season) 2023 Care Teams Cartography Supervisor Relationship Specialty Start Date End Date Cosme Muñoz MD [address] [place] [address] PCP - General 02/03/15
--- OUTSIDE RECORDS SUMMARY | 2024-04-12 14:38 | XMS_ITS | Encounter Summary ---
Author Organization [facility] [address] Care Team Providers Care Chemical Pumper Name Role Phone Cosme Muñoz MD Primary Care Provider Reason for Visit * Consultation (Routine) - Closed Specialty Diagnoses / Procedures Referred By Rakesh alejandra Referred To Contact General Surgery Diagnoses Obesity, unspecified OBESITY - BARIATRIC SURGERY PROGRAM Cosme Muñoz MD [address] [place] [address] [facility] [address] [place] [address] Referral ID Status Reason Start Date Expiration Date V isits Requested Visits Authorized [id number] Closed Consult, Test & Treat Connection Center PCP Updated and/or Approved 06/08/2019 06/07/2020 1 1 Encounter Details Date Type Department Care Team (Late st Contact Info) Description 06/22/2019 2:00 PM EST Notes [place] [address] Social History Tobacco Use Types Packs/Day Years Used Date Smoking Tobacco: Never Assessed Sex and Gender Information Value Date Recorded Sex Assigned at Not on file Gender Identity Not on file Sexual Orientation Not on file documented as of this encounter Progress Notes * Melody Arriaga - 06/22/2019 2:00 PM EST Bariatric - Intro Form 06/22/19 documented in this encounter Plan of Treatment Not on file documented as of this encounter Visit Diagnoses Not on filedocumented in this encounter Care Teams Chemical Pumper Relationship Specialty Start Date End Date Cosme Muñoz MD [address] [place] [address] PCP - General 06/09/10 documented as of this encounter
--- OUTSIDE RECORDS SUMMARY | 2024-04-12 14:38 | XMS_ITS | Continuity of Care Document ---
Author Organization [facility] Address [address] [place] [address] Care Team Providers Care Machine Maintenance Repairer Name Role Phone Cosme Damon Primary Care Physician Encounter [id number] Date(s): 05/13/23 - 05/13/[address] [address] Discharge Disposition: Home or Self Care Attending Physician: Keyana Lundberg NP Admitting Physician: Keyana Lundberg NP Referring Physician: Keyana Lundberg FULL TIME BABYSITTER Allergies, Adverse Reactions, Alerts No Known Medication Allergies Assessment and Plan Future Appointments Immunizations Given and Recorded Vaccine Date Status Refusal Reason SARS-CoV-2 (COVID-19) mRNA-1273 vaccine 10/23/20 R ecorded SARS-CoV-2 (COVID-19) mRNA-1273 vaccine 09/25/20 R ecorded tetanus/diphth/pertuss (Tdap) adult/adol 09/30/14 Recorded rubella virus vaccine 07/18/00 Recorded varicella virus vaccine 07/18/00 Recorded Social History Social History Type Response Sex Female Patient Care team information Care Team Personnel Name: Cosme Damon MD Position: No Access Member Role: Informed Provider Address: Address: [facility] [address] [place] [address]- Care Team Related Persons Name: ALFREDO MEANS Address: Home [address] [place], [id number]
--- OUTSIDE RECORDS SUMMARY | 2024-04-12 14:38 | XMS_ITS | Encounter Summary ---
Author Organization [facility] Address [address] [place] [address] Care Team Providers Care Outplacement Consultant Name Role Phone Cosme Muñoz MD Primary Care Provider [phone] Encounter Details Date Type Department Care Team (Late st Contact Info) Description 06/19/2021 Lab Requisition [facility] Pathology & Laboratory Medicine - [address] [address] Bonnie Merritt MD [address] [place] [address] [phone] Encounter for other general examination Social History Tobacco Use Types Packs/Day Years Used Date Smoking Tobacco: Never Assessed Sex and Gender Information Value Date Recorded Sex Assigned at Not on file Gender Identity Not on file Sexual Orientation Not on file documented as of this encounter Plan of Treatment Not on file documented as of this encounter Procedures Procedure Name Priority Date/Time Associated Diagnosis Comments SURGICAL PATHOLOGY Today 06/19/2021 14 :16 EST documented in this encounter Results * SURGICAL PATHOLOGY (06/19/2021 14:16 EST) Note to Patient The following pathology results have been interpreted by your pathologist and may be available to you before your health provider has had the opportunity to review them. Please allow time for your provider to receive these results and explore management options, if applicable. 06/29/2021 7:08 [facility] Final Diagnosis A. VAGINA, VAGINAL CUFF, BIOPSY: - Squamous mucosa with erosion and dense subepithelial chronic inflammatory infiltrate. See comment. - Negative for dysplasia 06/29/2021 7:08 [facility] Diagnosis Comment Histologic sections show squamous epithelium with focal erosion and reactive changes, with a dense subepithelial chronic inflammatory infiltrate composed of mixed small lymphocytes occasional histiocytes. No significant acute inflammation or eosinophils are identified. PAS-amylase is negative for fungal organisms. Deeper levels have been examined. Sales And Marketing Agent slides of this case were reviewed at the intradepartmental consultation conference. Immunoperoxidase stains were performed on this case to further characterize the lesion. ANTIBODY(CLONE)(BLO CK):RESULT CD3 (SP7, [employer]) (A1): Predominance of small, T-lymphocytes CD20 (L26, [employer]) (A1): Mixed small B-lymphocytes NOTE: One or more of the reagents used in immunoperoxidase testing in this case may not have been cleared or approved by the U.S. Food and Drug Administration (FDA). The FDA has determined that such clearance or approval is not necessary. These tests are used for clinical purposes. They should not be regarded as investigational or for research. These reagents' performance characteristics have been determined by [facility] and/or by the referring laboratory. The positive and negative controls worked appropriately. If immunoperoxidase staining has been performed on alcohol fixed cytology specimens, which has not been fully validated, the assays should be interpreted with caution and correlated with clinical data. This laboratory is certified under the Clinical Laboratory Improvement Amendments of 1988 (CLIA-88) as qualified to perform high complexity clinical laboratory testing. 06/29/2021 7:08 [facility] Attestation There was significant resident/fellow involvement in the diagnostic evaluation of this case. By the signature below, the attending physician certifies that they have personally conducted a gross and/or microscopic examination of the described specimens and rendered or confirmed the above diagnosis. 06/29/2021 7:08 [facility] at 0708 Clinical History Punctate erythemic area at vaginal cuff 06/29/2021 7:08 [facility] Gross Description A. Received in formalin labelled with proper patient identification (initials W, L) and not otherwise specified is a single firm chance-white focally brown tissue fragment (0.5 x 0.3 x 0.2 cm). Submitted intact in A1. MICHELLE ARZOLA MD 06/22/2021 9:44 06/29/2021 7:08 EST [facility] Resident/Fell ow: Michelle Arzola MD 06/29/2021 7:08 EST [facility] Performing Lab [facility] 06/29/2021 7:08 EST [facility] Scanned Images 06/29/2021 7:08 EST [facility] Tissue ENTIRE VAGINA / Unknown 06/19/2021 14:16 EST 06/20/2021 10:38 EST Bonnie Merritt MD PATHOLOGY ORDSaurav MCMANUS [facility] [address] [place] [address] documented in this encounter Visit Diagnoses Diagnosis Encounter for other general examination documented in this encounter Care Teams Outplacement Consultant Relationship Specialty Start Date End Date Cosme Muñoz MD [address] [place] [address] PCP - General 02/03/15 documented as of this encounter
--- OUTSIDE RECORDS SUMMARY | 2024-04-12 14:38 | XMS_ITS | Encounter Summary ---
Author Organization [facility] Address [address] [place] [address] Care Team Providers Care Radiographer Angiogram Name Role Phone Cosme Muñoz MD Primary Care Provider [phone] Encounter Details Date Type Department Care Team (Late st Contact Info) Description 11/11/2020 Lab Requisition [facility] Pathology & Laboratory Medicine - [address] [address] Outr Resulting Lab, Provider Social History Tobacco Use Types Packs/Day Years Used Date Smoking Tobacco: Never Assessed Sex and Gender Information Value Date Recorded Sex Assigned at Not on file Gender Identity Not on file Sexual Orientation Not on file documented as of this encounter Plan of Treatment Not on file documented as of this encounter Procedures Procedure Name Priority Date/Time Associated Diagnosis Comments ZZCOVID-19 TEST [facility] PCR Today 11/11/2020 16:02 EDT COVID-19 TESTING Routine 11/11/2020 16:0 2 EDT documented in this encounter Results * COVID-19 TEST [facility] PCR (11/11/2020 16:02 EDT) Swab ENTIRE NASOPHARYNX / Unknown 11/11/2020 16:02 EDT 11/11/2020 21:09 EDT Provider Outr Resulting Lab MICROBIOLOGY - GENERAL ORDERABLES [facility] [address] [place] [address] * COVID-19 TESTING (11/11/2020 16:02 EDT) COVID-19 rt-PCR Result Negative Negative 11/12/2020 16:05 EDT [facility] Comment: This test has not been FDA cleared or approved. This test has been authorized by FDA under an EUA for use by authorized laboratories. This test has been authorized only for detection of nucleic acid from 2019-nCoV, not for any other viruses or pathogens. This test is only authorized for the duration of the declaration that circumstances exist justifying the authorization of emergency use of in vitro diagnostic tests for detection and/or diagnosis of 2019-nCoV under section 564(b)(1) of Act, 21 U.S.C ?? 360bbb-3(b) (1), unless the authorization is terminated or revoked sooner. Negative results do not preclude 2019-nCoV infection and should not be used as the sole basis for treatment or other patient management decisions. Negative results must be combined with clinical observations, patient history, and epidemiological information. Testing was performed using the edinson SARS-CoV-2 assay ([employer] on the Edinson 6800 System Performing Lab Edinson 6800 [facility] 11/12/2020 16:05 EDT [facility] Swab 11/11/2020 16:0 2 EDT 11/11/2020 21:09 EDT Provider Outr Resulting Lab MICROBIOLOGY - GENERAL ORDERABLES Performing Organization Address City/State/[facility] Co de Phone Number [facility] [address] [place] [address] documented in this encounter Visit Diagnoses Not on filedocumented in this encounter Care Teams Radiographer Angiogram Relationship Specialty Start Date End Date Cosme Muñoz MD [address] [place] [address] PCP - General 02/03/15 documented as of this encounter
--- OUTSIDE RECORDS SUMMARY | 2024-04-12 14:38 | XMS_ITS | Continuity of Care Document ---
Author Organization [facility] Address [address] [place] [address] Care Team Providers Care Recruiter Name Role Phone Cosme Damon Primary Care Physician Encounter [place] Date(s): 06/28/22 - 06/28/[address] [address] Encounter Diagnosis Inconclusive mammogram(Discharge Diagnosis) - 06/28/22 Discharge Disposition: Home or Self Care Attending [...] Personnel Name: Cosme Damon MD Address: Address: [facility] [address] [place], [place] [address]
--- OUTSIDE RECORDS SUMMARY | 2024-04-12 14:39 | XMS_ITS | Encounter Summary ---
Author Organization [facility] Address [address] [place] [address] Care Team Providers Care Diagrammer Name Role Phone Unavailable Primary Care Provider Unavailabl e Encounter Details Date Type Department Care Team (Latest Contact Info) Description 01/30/2015 16:12 EDT - 01/30/2015 23:59 EDT Hospital Encounter [address] [address] Unknown, Provider, Discharge Disposition: Home or Self Care Social History Tobacco Use Types Packs/Day Years Used Date Smoking Tobacco: Never Assessed Sex and Gender Information Value Date Recorded Sex Assigned at Not on file Gender Identity Not on file Sexual Orientation Not on file documented as of this encounter Discharge Disposition Disposition Code Departure Means Destination Home or Self Long-Term documented in this encounter Plan of Treatment Not on file documented as of this encounter Visit Diagnoses Not on filedocumented in this encounter
--- OUTSIDE RECORDS SUMMARY | 2024-04-12 14:39 | XMS_ITS | Encounter Summary ---
Author Organization [facility] Address [address] [place] [address] Care Team Providers Care Proof Technician Name Role Phone Unavailable Primary Care Provider Unavailabl e Encounter Details Date Type Department Care Team (Late st Contact Info) Description 11/16/2006 Results Only [facility] - [place] conversion [address] [place] [address] Ramon Isaacs APRN Social History Tobacco Use Types Packs/Day Years Used Date Smoking Tobacco: Never Assessed Sex and Gender Information Value Date Recorded Sex Assigned at Not on file Gender Identity Not on file Sexual Orientation Not on file documented as of this encounter Plan of Treatment Not on file documented as of this encounter Procedures Procedure Name Priority Date/Time Associated Diagnosis Comments HPV DETECTION, HIGH RISK TYPES Routine 11/16/2006 12:11 EDT CYTOPATHOLOGY Routine 11/16/2006 0:00 EDT documented in this encounter Results * HUMAN PAPILLOMA VIRUS DNA TEST (11/16/2006 12:11 EDT) Specimen Description Cervix, ThinPrep vial [facility] Result Negative for HPV types 16, 18, 31, 33, 35, 39, 45, 51, 52, 56, 58, 59, and 68. [facility] Report Status Final [id number] [facility] 11/16/2006 12:1 1 EDT 11/24/2006 12:11 EDT Ramon Isaacs APRN MICROBIOLOGY - GENERAL ORDERABLES [facility] [address] [place] [address] * CYTOPATHOLOGY (11/16/2006 0:00 EDT) Pathology Report: CYTOPATHOLOGY REPORT Reports generated via electronic interface contain original data; however they are lacking the format of the original report. Caution should be taken when reading/interpreti ng unformatted reports. Name: ? MEANS ANI ? Accession #: ? [id number] : ? 1970 (Age: 36) ??F ?Collect Date: ? 11/16/2006 Location: ? [facility] ? Receive Date: ? 11/18/2006 Provider: ?RAMON ISAACS CORRESPONDENCE CLERK Copy to: ? Specimen/Source: ?ThinPrep Pap Test, Cervix/Endocervix, processed on [employer] ThinPrep Imaging System, with manual evaluation Last Menstrual Period: ? 10/30/06 Other: ? Additional clinical information: Previous pap WNL HPVDX - HPV testing requested regardless of diagnosis on current ThinPrep Pap test. ? SPECIMEN ADEQUACY ? Satisfactory for Evaluation - transformation zone component present - scant squamous epithelial component secondary to excessive inflammation GENERAL CATEGORIZATION ? Negative for Intraepithelial Lesion or Malignancy INTERPRETATION ? Reactive cellular changes associated with inflammation present (includes repair). ? Document reviewed and electronically signed by: ? MARI JIMENEZ MD ? Report Date: ??11/23/2006 15:48 End of Report [facility] 11/16/2006 11/18/2006 Ramon Isaacs APRN PATHOLOGY ORDER SOHAIL [facility] [address] [place] [address] documented in this encounter Visit Diagnoses Not on filedocumented in this encounter
--- OUTSIDE RECORDS SUMMARY | 2024-04-12 14:39 | XMS_ITS | Encounter Summary ---
Author Organization [facility] Address [address] [place] [address] Care Team Providers Care Middle [employer] Professional Name Role Phone Unavailable Primary Care Provider Unavailabl e Encounter Details Date Type Department Care Team (Late st Contact Info) Description 03/30/2004 Results Only [facility] - Map conversion [address] [place] [address] Marysol, October, CN [address] [place] [address] Social History Tobacco Use Types Packs/Day Years Used Date Smoking Tobacco: Never Assessed Sex and Gender Information Value Date Recorded Sex Assigned at Not on file Gender Identity Not on file Sexual Orientation Not on file documented as of this encounter Plan of Treatment Not on file documented as of this encounter Procedures Procedure Name Priority Date/Time Associated Diagnosis Comments CYTOPATHOLOGY Routine 03/30/2004 0:00 EDT documented in this encounter Results * CYTOPATHOLOGY (03/30/2004 0:00 EDT) Pathology Report: CYTOPATHOLOGY REPORT Reports generated via electronic interface contain original data; however they are lacking the format of the original report. Caution should be taken when reading/interpreti ng unformatted reports. Name: ? MEANS ANI ? Accession #: ? [id number] : ? 1970 (Age: 33) ??F ?Collect Date: ? 03/30/2004 Location: ? [facility] ? Receive Date: ? 04/01/2004 Provider: ?KERA GREGG CNM Copy to: ? Specimen/Source: ?ThinPrep Pap Test, Cervix/Endocervix Last Menstrual Period: ? 03/14/2004 Other: ? HPVA - HPV testing requested if ASC-US on the current ThinPrep Pap test. ? SPECIMEN ADEQUACY ? Satisfactory for Evaluation - transformation zone component present GENERAL CATEGORIZATION ? Negative for Intraepithelial Lesion or Malignancy ? Document reviewed and electronically signed by: ? Audrey Parrish, ARJUN(ASCP)(IAC) ? Report Date: ??04/06/2004 17:01 End of Report [facility] 03/30/2004 04/01/2004 Kera Gregg CNM PATHOLOGY ORDERABLES [facility] [address] [place] [address] documented in this encounter Visit Diagnoses Not on filedocumented in this encounter
--- OUTSIDE RECORDS SUMMARY | 2024-04-12 14:39 | XMS_ITS | Encounter Summary ---
Author Organization [facility] Address [address] [place] [address] Care Team Providers Care Magazine Repairer Name Role Phone Unavailable Primary Care Provider Unavailabl e Encounter Details Date Type Department Care Team (Late st Contact Info) Description 01/30/2015 Results Only [facility] [phone] Yosef Muñoz MD [address] [place] [address] Social History Tobacco Use Types Packs/Day Years Used Date Smoking Tobacco: Never Assessed Sex and Gender Information Value Date Recorded Sex Assigned at Not on file Gender Identity Not on file Sexual Orientation Not on file documented as of this encounter Plan of Treatment Not on file documented as of this encounter Procedures Procedure Name Priority Date/Time Associated Diagnosis Comments SURGICAL PATHOLOGY Routine 01/30/2015 8:50 EDT documented in this encounter Results * SURGICAL PATHOLOGY (01/30/2015 8:50 EDT) Pathology Report: SURGICAL PATHOLOGY REPORT Reports generated via electronic interface contain original data; however they are lacking the format of the original report. Caution should be taken when reading/interpret ing unformatted reports. Name: ? ANI MEANS ? Accession #: ? [id number] ? : ? 1970 (Age: 44) ??F ? Collect Date: ? 01/30/2015 ? Location: ? [facility] ? Receive Date: ? 01/30/2015 ? Provider: YOSEF MUÑOZ MD Copy to: ? Final Pathologic Diagnosis: SKIN OF ARM, RIGHT, EXCISION: - Dermatofibroma. - Lesion extends to deep margin. - Lesion measures approximately 0.2 mm to the nearest peripheral margin. Document reviewed and electronically signed by: LINNETTE MERLOS MD Report ??Date: 02/03/2015 12:24 By the signature above, the attending physician certifies that he/she has personally conducted a gross and/or microscopic examination of the described specimens and rendered or confirmed the above diagnosis. Specimen(s) Received: 7.0 x 8.0 mm pigmented macule R am, 1.3 x 1.1 cm ellipse excised Clinical History: DDx: Melanoma, nevus Gross Description: ? Received in formalin labelled with proper patient identification (initials W, L) and right arm is an unoriented elliptical excision of pink-chance skin (1.5 x 1.0 cm and is excised to a depth of 0.3 cm). No discrete lesions are identified on the skin surface. The margins are inked blue. The specimen is serially sectioned and entirely submitted as 1-2 central sections and 3 tips, reverse en face. Adis Shrestha 01/31/2015 9:11 AM End of Report [facility] 01/30/2015 8:50 EDT 01/30/2015 8:50 EDT Yosef Muñoz MD PATHOLOGY ORDERABLES [facility] [address] [place] [address] documented in this encounter Visit Diagnoses Not on filedocumented in this encounter
--- OUTSIDE RECORDS SUMMARY | 2024-04-12 14:39 | XMS_ITS | Encounter Summary ---
Author Organization [facility] Address [address] [place] [address] Care Team Providers Care Electric Operator Name Role Phone Unavailable Primary Care Provider Unavailabl e Encounter Details Date Type Department Care Team (Late st Contact Info) Description 09/30/2014 Results Only [facility] - [facility] [address] [place] [address] Con Dan MD Social History Tobacco Use Types Packs/Day Years Used Date Smoking Tobacco: Never Assessed Sex and Gender Information Value Date Recorded Sex Assigned at Not on file Gender Identity Not on file Sexual Orientation Not on file documented as of this encounter Plan of Treatment Not on file documented as of this encounter Procedures Procedure Name Priority Date/Time Associated Diagnosis Comments PAP TEST- RESULT ONLY Routine 09/30/2014 0:00 EDT documented in this encounter Results * PAP TEST- RESULT ONLY (09/30/2014 0:00 EDT) Pathology Report: CYTOPATHOLOGY REPORT Reports generated via electronic interface contain original data; however they are lacking the format of the original report. Caution should be taken when reading/interpreti ng unformatted reports. Name: ? MEANS, ANI ? Accession #: ? [id number] ? : ? 1970 (Age: 44) ??F ?Collect Date: ? 09/30/2014 ? Location: ? [facility] ? Receive Date: ? 10/01/2014 ? Provider: CON DNA MD Copy to: ? Final Report `SPECIMEN ADEQUACY ? Satisfactory for Evaluation - assessment of transformation zone component not applicable ( e.g. atrophy, vaginal sample, hysterectomy) GENERAL CATEGORIZATION ? Negative for Intraepithelial Lesion or Malignancy INTERPRETATION ? Reactive cellular changes associated with inflammation present (includes repair). Treatment History: Hysterectomy: Abdominal 02/21/09 Other: Additional clinical information: ??PAP 08/24 QNS , Neg HPV Specimen/Source: ??Pap Test, Vagina, ThinPrep Imaging System with manual evaluation Document reviewed and electronically signed by: ? JUAN DANIEL VALDERRAMA MD [facility] ? Report ??Date: 10/09/2014 13:15 HPV with Pap Test ? Date Ordered: ? 10/09/2014 ? Status: ?? Signed Out ?Date Complete: ? 10/11/2014 ? By: ??System Interface ? Date Reported: ? 10/11/2014 ? Interpretation RESULT: Negative for HPV. No E6 or E7 mRNA is detected from HPV types 16,18,31,33,35, 39,45,51,52,56,58, 59,66, and 68 by high lift driver mediated amplification. Test not validated for this type of specimen or collection method. The sensitivity and specificity of the test in this situation are unknown. The results should be interpreted with caution. Comments Document reviewed and electronically signed by: ? System Interface ? Report date: 10/11/2014 By the signature above, the attending physician certifies that he/she has personally conducted a gross and/or microscopic examination of the described specimens and rendered or confirmed the above diagnosis. End of Report [facility] 09/30/2014 10/01/2014 Con Dan MD PATHOLOGY ORDERABLES [facility] [address] [place] [address] documented in this encounter Visit Diagnoses Not on filedocumented in this encounter
--- OUTSIDE RECORDS SUMMARY | 2024-04-12 14:39 | XMS_ITS | Encounter Summary ---
Author Organization [facility] Address [address] [place] [address] Care Team Providers Care Party Plan Sales Host/Hostess Name Role Phone Unavailable Primary Care Provider Unavailabl e Encounter Details Date Type Department Care Team (Late st Contact Info) Description 03/05/2003 Results Only [facility] - [place] conversion [address] [place] [address] Marysol, October, CN [address] [place] [address] Social History Tobacco Use Types [...] Priority Date/Time Associated Diagnosis Comments CYTOPATHOLOGY Routine 03/05/2003 0:00 EDT documented in this encounter Results * CYTOPATHOLOGY (03/05/2003 0:00 EDT) Pathology Report: CYTOPATHOLOGY REPORT Reports generated via electronic interface contain original data; however they are lacking the format of the original report. Caution should be taken when reading/interpreti ng unformatted reports. Name: ? MEANS ANI ? Accession #: ? [id number] : ? 1970 (Age: 32) ??F ?Collect Date: ? 03/05/2003 Location: ? [facility] ? Receive Date: ? 03/07/2003 Provider: ?KERA GREGG CNM Copy to: ? Specimen/Source: ?ThinPrep Pap Test, Cervix/Endocervix Last Menstrual Period: ? 02/24/03 ? SPECIMEN ADEQUACY ? Satisfactory for Evaluation - transformation zone component present - scant squamous epithelial component GENERAL CATEGORIZATION ? Negative for Intraepithelial Lesion or Malignancy ? Document reviewed and electronically signed by: ? Audrey Parrish, ARJUN(ASCP)(IAC) ? Report Date: ??03/12/2003 17:05 End of Report [facility] 03/05/2003 03/07/2003 Kera Gregg CNM PATHOLOGY ORDERABLES [facility] [address] [place] [address] documented in this encounter Visit Diagnoses Not on filedocumented in this encounter
--- OUTSIDE RECORDS SUMMARY | 2024-04-12 14:39 | XMS_ITS | Encounter Summary ---
Author Organization [facility] Address [address] [place] [address] Care Team Providers Care Stone Dresser Name Role Phone Unavailable Primary Care Provider Unavailabl e Encounter Details Date Type Department Care Team (Late st Contact Info) Description 05/30/2002 Results Only [facility] conversion [address] [place] [address] Stephani Watson MD [address] [place] [id number] Social History Tobacco Use Types Packs/Day Years Used Date Smoking Tobacco: Never Assessed Sex and Gender Information Value Date Recorded Sex Assigned at Not on file Gender Identity Not on file Sexual Orientation Not on file documented as of this encounter Plan of Treatment Not on file documented as of this encounter Procedures Procedure Name Priority Date/Time Associated Diagnosis Comments SURGICAL PATHOLOGY Routine 05/30/2002 0:00 EST documented in this encounter Results * SURGICAL PATHOLOGY (05/30/2002 0:00 EST) Pathology Report: SURGICAL PATHOLOGY REPORT Reports generated via electronic interface contain original data; however they are lacking the format of the original report. Caution should be taken when reading/interpreti ng unformatted reports. Name: ? CLARY ANI ? Accession #: ? [id number] ? : ? 1970 (Age: 31) ??F ? Collect Date: ? 05/30/2002 ? Location: ? [facility] ? Receive Date: ? 05/31/2002 ? Provider: STEPHANI WATSON MD Copy to: LEIGHTON WOLF MD ? Final Pathologic Diagnosis: ? -Skin of cheek, punch biopsy: 1. ?Blue nevus. ? - Lesion extends focally to edges of punch biopsy specimen. Microscopic Description: ? Sections are of a low papule. ??The epidermis is generally unremarkable. The junctional melanocytes are normal in number and morphology. ??Within the reticular dermis, there is a proliferation of spindle-shaped melanocytes including bipolar and dendritic forms. ??The latter have elongate cytoplasmic processes containing abundant coarse melanin pigment. ??The nuclei are relatively uniform, elongate, and have tapered ends. ??The melanocytes are associated with thickened collagen bundles and clusters of melanophages. ??The proliferation is overall symmetric and wedge-shaped. ??(Dr. Oliva)/[facility] Document reviewed and electronically signed by: Jolly Oliva MD Report ??Date: 06/01/2002 15:52 By the signature above, the attending physician certifies that he/she has personally conducted a gross and/or microscopic examination of the described specimens and rendered or confirmed the above diagnosis. Specimen(s) Received: ? IDN, 3 mm, L cheek ??4 mm punch excision Clinical History: ? Clinically benign but deep br/black pigment; nevus x yrs L cheek; pt feels increased pigment over past year ??3 mm well defined IDN Gross Description: ? Received in formalin labelled Cummings is a punch biopsy of skin measuring 0.4 cm in diameter and 0.4 cm in thickness. ??There is an irregularly shaped bergman-brown macule on the skin. ??The specimen is bisected and submitted entirely in one cassette. ??(Dr. Hsu)/[facility] End of Report [facility] 05/30/2002 05/31/2002 11: 06 EST Stephani Watson MD PATHOLOGY ORDERABLES Performing Organization Address City/State/[facility] Co de Phone Number [facility] [address] [address] documented in this encounter Visit Diagnoses Not on filedocumented in this encounter
--- OUTSIDE RECORDS SUMMARY | 2024-04-12 14:39 | XMS_ITS | Encounter Summary ---
Author Organization [facility] Address [address] [place] [address] Care Team Providers Care Digital Media Intern Name Role Phone Unavailable Primary Care Provider Unavailabl e Encounter Details Date Type Department Care Team (Late st Contact Info) Description 09/06/2008 Before PRISM Converted Visit ([facility]) [facility] - [address] [place], [place] [id number] Edouard Garcia MD [address] [place] [id number] Social History Tobacco Use Types Packs/Day Years [...] Comments HPV DETECTION, HIGH RISK TYPES Routine 09/06/2008 15:15 EST CYTOPATHOLOGY Routine 09/06/2008 0:00 EST CYTOPATHOLOGY Routine 09/06/2008 0:00 EST documented in this encounter Results * HUMAN PAPILLOMA VIRUS DNA TEST (09/06/2008 15:15 EST) Specimen Description Cervix, ThinPrep vial [facility] Result Negative for HPV types 16, 18, 31, 33, 35, 39, 45, 51, 52, 56, 58, 59, and 68. [facility] Report Status Final 09/19/2008 [facility] 09/06/2008 15:1 5 EST 09/16/2008 15:15 EST Edouard Garcia MD MICROBIOLOGY - GENERAL ORDERABLES [facility] [address] [place] [address] * CYTOPATHOLOGY (09/06/2008 0:00 EST) Pathology Report: CYTOPATHOLOGY REPORT ? Reports generated via electronic interface contain original data; ? however they are lacking the format of the original report. ? Caution should be taken when reading/interpreti ng unformatted reports. ? Name: ? ANI MEANS ? Accession #: ? [id number] ? : ? 1970 (Age: 38) ??F ?Collect Date: ? 09/06/2008 ? Location: ? [facility] ? Receive Date: ? 09/09/2008 ? Provider: ? CHRISTOPHER GARCIA MD ? Copy to: ? Specimen Type: ? Urine, Voided ? Clinical History: ? Obstruction urinary NOS ? Gross Description: ? 50 cc' s of clear yellow fluid were received and processed by selective ? cellular enhancement technique. ? CYTOLOGIC DIAGNOSIS: ? Urine, voided, cytologic evaluation: ? 1. ?No malignant cells identified. ? 2. ? Abundant debris. ? 3. ? Squamous cells and rare urothelial cells. ? 4. ? Marked acute inflammatory cells, blood and crystals. ? Document reviewed and electronically signed by: ? JUAN DANIEL VALDERRAMA MD MBBC ? Report Date: ??09/11/2008 14:32 ? By the signature above, the attending physician certifies that he/she has ? personally conducted a gross and/or microscopic examination of the described ? specimens and rendered or confirmed the above diagnosis. ? End of Report ? [facility] 09/06/2008 09/09/2008 8:5 0 EST Edouard Garcia MD PATHOLOGY [facility] [address] [place] [address] * CYTOPATHOLOGY (09/06/2008 0:00 EST) Pathology Report: CYTOPATHOLOGY REPORT ? Reports generated via electronic interface contain original data; ? however they are lacking the format of the original report. ? Caution should be taken when reading/interpreti ng unformatted reports. ? Name: ? MEANS, ANI ? Accession #: ? [id number] ? : ? 1970 (Age: 38) ??F ?Collect Date: ? 09/06/2008 ? Location: ? [facility] ? Receive Date: ? 09/09/2008 ? Provider: ?EDOUARD GARCIA MD ? Copy to: ? Specimen/Source: ?Pap Test, Cervix/Endocervix, ThinPrep Imaging System ? with manual evaluation ? Last Menstrual Period: ? 02/05/09 ? Other: ? HPVDX - HPV testing requested regardless of diagnosis on current ThinPrep Pap ?? test. ? SPECIMEN ADEQUACY ? Unsatisfactory for Evaluation, ? - insufficient numbers of squamous epithelial cells (less than 10% of expected ?? cellularity) ? GENERAL CATEGORIZATION ? Specimen processed and examined, but unsatisfactory for evaluation of ? epithelial abnormality. ? Recommend repeat Pap test or further follow up, as clinically indicated. ? Document reviewed and electronically signed by: ? Brittany [place], [place](ASCP) ? Report Date: ??09/16/2008 09:33 ? End of Report ? [facility] 09/06/2008 09/09/2008 Edouard Garcia MD PATHOLOGY [facility] [address] [place] [address] documented in this encounter Visit Diagnoses Not on filedocumented in this encounter
--- OUTSIDE RECORDS SUMMARY | 2024-04-12 14:39 | XMS_ITS | Encounter Summary ---
Author Organization [facility] Address [address] [place] [address] Care Team Providers Care Bridal Stylist Sales Consultant Name Role Phone Unavailable Primary Care Provider Unavailabl e Encounter Details Date Type Department Care Team (Late st Contact Info) Description 10/18/2000 Results Only [facility] - [facility] conversion [address] [place] [address] Con Dan MD Social History Tobacco Use [...] Priority Date/Time Associated Diagnosis Comments CYTOPATHOLOGY Routine 10/18/2000 0:00 EDT documented in this encounter Results * CYTOPATHOLOGY (10/18/2000 0:00 EDT) Pathology Report: CYTOPATHOLOGY REPORT Reports generated via electronic interface contain original data; however they are lacking the format of the original report. Caution should be taken when reading/interpreti ng unformatted reports. Name: ? ANI MEANS ? Accession #: ? [id number] : ? 1970 (Age: 30) ??F ?Collect Date: ? 10/18/2000 Location: ? [facility] ? Receive Date: ? 10/20/2000 Provider: ?CON DAN MD Copy to: ?EVANGEL[facility] ? Specimen/Source: ?ThinPrep Pap Test, Cervix/Endocervix Last Menstrual Period: ? 10/05/00 Other: ? Colposcopy Pap and/or biopsy in progress Additional clinical information: Cervical polyp ? SPECIMEN ADEQUACY ? Satisfactory for evaluation. GENERAL CATEGORIZATION ? Within Normal Limits ? Document reviewed and electronically signed by: ? SHILPA Amaro(ASCP) ? Report Date: ??10/20/2000 14:21 End of Report [facility] 10/18/2000 10/20/2000 Con Dan MD PATHOLOGY ORDERABLES [facility] [address] [place] [address] documented in this encounter Visit Diagnoses Not on filedocumented in this encounter
== END 2024-04-12 14:37 | disposition home or self-care (01) ==
LOC: NCHCN 14:36
PROVIDERS: PCP Internal Medicine; Visit Provider Physician Assistant
DX: D48.5 Neoplasm of uncertain behavior of skin (principal); L98.0 Pyogenic granuloma
CPT/HCPCS: 88305

== ENCOUNTER 2024-04-25 12:32 | Outpatient (REF) | payer BC, SELFPAY ==
--- NOTE | 2024-04-25 16:00 | SKI_PTH ---
PATIENT: Ani Cummings LOC: [facility] U#:[id number] AGE/SX: 53/F ROOM: RE04/25/[address]: Cosme Muñoz : 1970 BED: DIS: 04/25/2024 SPEC #: [id number] RECD: 04/26/24 12:54 STATUS: WENDY RECelio #: [id number] CINDY: 04/25/24 16:[address]: Cosme Muñoz DEPT: Surgical Specimen RECD BY: Taylor Lopez Tissues: 1 - SKIN BIOPSY(SHAVE/PUNCH) Procedures: SKIN LEVEL 4 Comments: [id number]
== END 2024-04-25 12:33 | disposition home or self-care (01) ==
LOC: LBN 12:32
PROVIDERS: PCP Internal Medicine; Visit Provider Internal Medicine
DX: L98.0 Pyogenic granuloma (principal)
CPT/HCPCS: 88305

== ENCOUNTER 2024-09-13 10:45 | Day surgery (SDC) | payer BC, SELFPAY ==
[2024-09-13] VITALS (23 sets, daily range): BP systolic 121–147; BP diastolic 61–96; PULSE 67–86; RESP 12–25; TEMP 36.2–36.4; O2SAT 94–100; BMI 37.5
--- NOTE | 2024-09-13 07:15 | W.PM.DSUDISC ---
Date of service: 09/13/24 Discharge Plan Disposition Patient Disposition: Home Condition: Stable Discharge Details Attending Provider: Yrn Thornton Primary Care Provider: Cosme Muñoz Home Meds and New Rx's Prescriptions: New naproxen 250 mg tablet 250 - 500 mg PO BID PRN (Reason: moderate pain and swelling) Qty: 40 0RF oxycodone 5 mg tablet 5 - 10 mg PO .q4-6h MDD 30 mg PRN (Reason: severe pain) Qty: 18 0RF Continued sumatriptan succinate 100 MG tablet 100 mg PO ONCE Qty: 9 Rx Instructions: Take at onset of headache. Ok to repeat in 1 hour. No more than 2 tablets in 24 hours. esomeprazole magnesium [Nexium] 20 mg capsule,delayed release(DR/EC) 20 mg PO DAILY fexofenadine [Nancy Allergy] 180 mg tablet 180 mg PO DAILY PRN fluticasone propionate [24 Hour Allergy Relief] 50 mcg/actuation spray,suspension 1 spray intranasal DAILY PRN Rx Instructions: administer into each nostril Discharge Instructions Additional Instructions: Surgery: Left shoulder arthroscopy with rotator cuff repair (subscapularis and supraspinatus), biceps tenodesis, extensive debridement, and subacromial decompression 09/13/24 Activity: For 6 weeks, you should keep your arm at your side in a neutral position at all times except for physical therapy. Do not try to lift or raise your arm using your own muscles. You should use the sling whenever you are out of the house. At home it is best to remove the sling and rest the arm on a pillow at your side or support the operative side with your other hand. You may allow the arm to dangle at your side. A physical therapy prescription will be sent electronically to begin in about 3 weeks. Prescriptions: Naproxen 250 mg take 1-2 every 12 hours with a meal as needed for moderate pain Oxycodone 5 mg take 1-2 every 4-6 hours as needed for severe pain You may use bvyk-ipm-iqfgnyl Tylenol (acetaminophen) as needed for mild pain. These pain medications may be taken all at once or in different combinations as needed. Also, recommend Colace (docusate) as a stool softener as surgery and pain medicine cause constipation. You may try fosp-jjv-yaynjtx diphenhydramine (Benadryl) 25-50 mg nightly as a sleep aid Dressings: Remove shoulder bandage after 3 days. Leave the sticky Steri-Strips in place until they fall off or remove them after you shower. Cover the incisions with Band-Aids or leave them open to air. You may shower after 5 days. Follow-up: 10-[address] Thornton You may take off the leg compression stockings this evening at home. You may also leave them on a few days longer if you have a history of leg swelling or edema. Let us know right away if you develop any redness, drainage, fevers, chest pain, or trouble breathing. Do not drink alcohol or drive for at least 24 hours after anesthesia. Please call the office during business hours with any questions or concerns. Discharge Orders Discharge Orders: Discharge Order (Routine); Ordered 09/13/24 Ordered By: Santiago Ugalde DS: Diagnosis Discharge Diagnosis (1) Left rotator cuff tear: Status: Acute (2) SLAP lesion of left shoulder: Status: Acute
--- NOTE | 2024-09-13 07:34 | ROE_ITS ---
Operative Note Operative Note PRE-OP DIAGNOSIS: Left: 1. Rotator cuff tear 2. LHB tendinopathy 3. Impingement POST-OP DIAGNOSIS: same Left: 1. Rotator cuff tear 2. LHB tendinopathy/ SLAP Tear 3. Impingement PROCEDURE: Left: 1. Rotator cuff repair, CPT# 54128. This involved repair of the subscapularis and supraspinatus using anchors and sutures to reattach the rotator cuff back to the footprint of the greater tuberosity. 2. Arthroscopic biceps tenodesis, CPT# 94817. This involved arthroscopically suturing and reattaching the long head of the biceps tendon to the proximal humerus at the superior margin of the bicipital groove with a screw at the correct tension. 3. Extensive debridement, CPT# 94284. This involved using arthroscopic hand instruments, power instruments, and radiofrequency instruments to release the long head of the biceps tendon and debride areas of labral tearing, synovitis, and chondromalacia about the superior humeral head working within the glenohumeral joint anteriorly, superiorly and posteriorly. 4. Subacromial decompression with partial acromioplasty, CPT# 04262. This involved using arthroscopic power instruments and a radiofrequency wand to complete a bursectomy and smooth the undersurface of the acromion. The automotive parts counter assistant was medically required in order to help assist in techniques above, which require positioning the arm, holding the arthroscope, and manipulating multiple instruments and sutures at the same time. This cannot be done without the help of an experienced automotive parts counter assistant. SURGEON: Yrn Thornton BATTERY TESTER FIELD: Santiago Ugalde ANESTHESIA TYPE: Local By Surgeon, General LMA/ETT and Primary Nerve Block Refer to Anesthesia Record ESTIMATED BLOOD LOSS: 5 PATHOLOGY: none sent COMPLICATIONS: None Patient was transported to: PACU Patient's condition: stable Implants: Arthrex: 4.75mm SwiveLocks x 2 Indications: The patient was diagnosed with the above conditions and appropriately indicated for surgical intervention. Please see complete medical record for details. Findings: Exam under anesthesia: Full range of motion, no instability Glenohumeral joint: Significant anterior synovitis. Moderate anterior and posterior labral fraying tearing. Obvious biceps fraying and unstable biceps anchor SLAP tear. Hemorrhagic biceps at the superior aspect of bicipital groove. Central to lateral defect mild to moderate grade subscapularis appears degenerative. Mild partial articular supraspinatus fraying articular tearing but no full-thickness component appreciated from the joint space. Subacromial space: Moderate bursitis. Intact bursal layers thinly over a high- grade supraspinatus small tear. Did not propagate to full-thickness despite probing and debridement. Procedure Description: In the operating room, general anesthesia was induced. Bilateral shoulders were examined. The patient was positioned in the beachchair position. All bony prominences were well-padded. Preoperative antibiotics were administered. The shoulder was prepped and draped in the usual sterile fashion. The correct patient, procedure, and side of the procedure were all verified prior to incision. Starting through the posterior portal a standard complete diagnostic arthroscopy was performed of the glenohumeral joint including inspection of the long head of the biceps, anterior and superior labrum, subscapularis tendon, supraspinatus and infraspinatus tendons, and axillary recess. The glenoid and humeral head cartilage as well as the posterior labrum were inspected from an anterior viewing portal. Significant findings and interventions noted above. An all-arthroscopic suprapectoral biceps tenodesis was performed through an anterior portal using a Loop N Tack method with a SutureTape FiberLink cinched around and through the tendon. The biceps was tenotomized from the labrum and fixated with a suture anchor at the superior margin of the bicipital groove. The extra repair suture was passed around the tendon stump back through the anchor eyelet mechanism and tension adding an additional nice secure to the repair. The subscapularis was examined and lightly debrided. There was some deficit in void centrally laterally. There was no real need to reattach the tendon to the lesser tuberosity as it was still attached nicely superior and inferior margins. Instead the 90 last used to shuttle a single suture tape about the tendon defect and secured closing the defect with SMC arthroscopic knots directly not anterior out of the joint. There is nice reapproximation of the subscapularis tendon tissue. Starting through the posterior portal, the arthroscope was directed into the subacromial space. A lateral 50 yard line lateral portal was created. A combination of power instruments and a radiofrequency ablator were used to debride bursitis anteriorly, posteriorly, and laterally as well as expose and smooth bone spurring on the undersurface of the acromion. The coracoacromial ligament was partially released. The bursectomy was completed viewing laterally and working from posteriorly and the rotator cuff was thoroughly inspected with findings noted above. The supraspinatus tendon had an notable area of thinning and hypermobility. Starting laterally this area was sharply elevated exposing the region of the tear defect. The tuberosity and tendon were debrided of abnormal tissue and bone and tendon repair to optimize healing. The defect did not probe full- thickness despite probably being quite thin. Did not probe really in any significant way more anteriorly or posteriorly. The self retrieving suture passer was used to shuttle an inverted horizontal mattress FiberTape centrally in the tear nicely securing the supraspinatus with an additional suture tape FiberLink in cinch mode more anteriorly grabbing the remainder of the tissue and reduced without undue tension and secured with good fixation strength to a single lateral row 4.75 mm SwiveLock anchor. The repair was stable through testing and there was no additional tearing requiring repair. The shoulder was drained of arthroscopic fluid. All portal sites were copiously irrigated. These incisions were closed using 3-0 Monocryl in a buried fashion and then covered with Mastisol, Steri-Strips, Xeroform, dry gauze, and ABDs. The dressings were covered and secured with Medipore tape. The operative extremity was placed into a sling for immobilization. The patient awoke from anesthesia without complication and was transferred to the recovery room in a stable condition. Date of Procedure: 09/13/24
--- NOTE | 2024-09-13 12:08 | W.ANESPRE ---
General Info Date of Service Date Performed: 09/13/24 Height: 5 ft 2 in Weight: 93.2 kg Body Mass Index (BMI): 37.5 Surgical Procedure: Operation Date: 09/13/24 11:10 Proposed Procedure Side Surgeon p Shoulder Rotator Cuff Arthroscopic w/Extensive Debridement, Biceps Tenodesis, Subacromial Decompression Left Yrn Thornton MD Meds Allergies and Home Medications Allergies Allergy/AdvReac Type Severity Reaction Status Date / Time Penicillins Allergy Intermediate Skin Rash Verified 09/13/24 11:08 Home Medication ?Medication ?Instructions ?Recorded sumatriptan succinate 100 mg tablet 100 mg PO ONCE #9 tab-caps 09/13/16 esomeprazole magnesium 20 mg 20 mg PO DAILY 09/11/24 capsule,delayed release (Nexium) fexofenadine 180 mg tablet 180 mg PO DAILY PRN 09/11/24 (Nancy Allergy) fluticasone propionate 50 1 spray intranasal DAILY PRN 09/11/24 mcg/actuation nasal spray,suspension (24 Hour Allergy Relief) Current Visit Medications: Current Medications Generic Name Dose Route Start Last Admin Trade Name Freq PRN Reason Stop Dose Admin Ringer's Solution 1,000 mls @ 30 mls/hr 09/13/24 06:00 IV 10/12/24 23:59 INFUSION MEG Cefazolin Sodium/Dextrose 2 gm in 50 mls @ 100 mls/hr 09/13/24 06:00 Ancef Duplex IVPB 10/12/24 23:59 PREOP MEG Tranexamic Acid/Sodium Chloride 1,000 mg in 100 mls @ 600 mls/hr 09/13/24 06:00 IVPB 10/12/24 23:59 PREOP MEG IV Miscellaneous Supplies 1 each 09/13/24 06:00 Iv Access IV 10/12/24 23:59 DIRECTED MEG Oxycodone HCl 0 mg 09/13/24 07:15 Oxycodone 5 Mg Tab PO 10/13/24 07:14 Q3H PRN PRN Pain Sodium Chloride 0 ml 09/13/24 06:00 Normal Saline Flush 10 Ml Syr IV 10/12/24 23:59 PRN PRN Sodium Chloride 0 ml 09/13/24 06:00 Normal Saline 10 Ml Vial IJ 10/12/24 23:59 DIRECTED PRN Sterile Water 0 ml 09/13/24 06:00 Water,Injection,Sterile 10 Ml Vial IJ 10/12/24 23:59 DIRECTED PRN [facility] Active Problems Active Problems: Problem Status Onset Code Tendinitis of long head of biceps brachii of left shoulder Acute M75.22 Cubital tunnel syndrome on left Acute G56.22 Left carpal tunnel syndrome Acute G56.02 Left rotator cuff tear Acute M75.102 Medical History Medical History Heartburn Migraines Surgical History Surgical History History of [facility] Tobacco Smoking/Tobacco Use Status: Never Alcohol Alcohol Intake: current Alcohol intake frequency: a few times a month Substance Use Substance use: Occasionally Substance use type: marijuana Details: gummy form Vital Signs and Lab Results Vital Signs Most Recent Vital Signs in EMR: Most Recent Vital Signs Temp Pulse Resp BP Pulse Ox 36.4 C L 69 20 147/93 H 97 09/13/24 11:10 09/13/24 11:10 09/13/24 11:10 09/13/24 11:10 09/13/24 11:10 Lab Results Blood Type / Crossmatch: No Data to Display Complete Blood Count: No Data to Display Complete Metabolic Panel: No Data to Display Liver Function Panel: No Data to Display Coagulation Panel: No Data to Display Cardiac Panel: No Data to Display Arterial Blood Gas: No Data to Display Venous Blood Gas: No Data to Display Pancreas Panel: No Data to Display Thyroid Panel: No Data to Display Infectious Disease: No Data to Display Blood Cultures: No Data to Display Toxicology Panel: No Data to Display Anesthesia Assessment and Plan Anesthesia History Personal History: No History of Anesthesia Complications Family History: No Family History of Anesthesia Complications Exercise Tolerance Exercise Tolerance: Metabolic Equivalents>4 Pertinent Negatives Pertinent Negatives: No Symptoms of GERD Cardiac & Pulmonary Exam Cardiac Exam: Normal S1/S2 Heart Sounds Pulmonary Exam: Clear Bilateral Breath Sounds Implantable Cardiac Device Does patient have a Pacemaker or an ICD?: No Airway Exam Known Difficult Airway: No Mallampati Class: 2 Mouth Opening: Normal (> 3cm) Thyromental Distance: Less than 3 cm Neck Range of Motion: Full ROM Neck Circumference: Normal Teeth Condition: Normal Dentition ASA Classification ASA Score: ASA 2 Emergency Case?: No NPO Status NPO Status: NPO Clears >2 hours, Solids >8 hours Anesthesia Plan Resuscitation Status: Full Code Anesthesia Technique: General Anesthesia Airway Planned: Endotracheal Tube Pain Management: Surgeon and patient request nerve block Monitors Used: Standard Monitors
[2024-09-13] MEDS: Lactated Ringers 1,000 ML 30 ML IV (12:51)
[2024-09-13] MEDS: ceFAZolin 2 GM/50 ML BAG IVPB (14:05)
[2024-09-13] MEDS: TRANEXAMIC ACID/SOD. CHL. 1,000 MG/100 ML BAG 600 MG IVPB (14:17)
[2024-09-13] MEDS: Bupivacaine 0.25% Pres-Free W/EPI 30 ML VIAL (15:00)
--- NOTE | 2024-09-13 15:29 | W.ANESNERVE ---
Nerve Block Single Injection Procedure Date and Time Date Performed: 09/13/24 Procedure Start: 13:32 Location Where Procedure Performed Procedure Location: Day Surgery Unit Reason Performed: Postoperative Analgesia Requesting Provider: Yrn Thornton Timeout Performed Timeout Performed: Yes Monitoring Used ECG, Blood Pressure, SpO2 and See EMR for corresponding vital signs Sterility Sterility: Hand Hygiene, Surgical Cap, Surgical Mask, Sterile Gloves and Chlorhexidine Sedation Given During Procedure Sedation Given (Indicate Dose Given): Versed IV Dose:: 2mg Patient Mental Status Patient Mental Status: Sedate with meaningful communication Nerve Block 1st Nerve Block: Laterality: Left Block Type: Supraclavicular Ultrasound Image Saved?: Yes Needle / Catheter Used: 100mm SonoPlex II Local Anesthetic Bolus (Indicate Dose Given): Lidocaine used for local infiltration of skin, Injected in 3-5ml increments after negative blood aspiration, Bupivacaine 0.5% Dose:: 10ml and Exparel Dose:: 10ml Additives (Indicate Dose Given): None Ultrasound: Sterile probe cover and gel used Nerve Stimulator: Supplement to Ultrasound use and No twitch or parasthesia noted < 0.5 mA Paresthesia: None Procedure Tolerated: No Complications and Patient tolerated well Procedure Outcome: Successful Performed By: Lavon Piper
[2024-09-13] MEDS: EPINEPHrine 10 MG/10 ML ML (15:46)
[2024-09-13] MEDS: ACETAMINOPHEN 1,000 MG/100 ML BAG 400 MG IVPB (16:11)
[2024-09-13] MEDS: fentaNYL 100 MCG/2 ML VIAL IVP (16:29)
--- NOTE | 2024-09-13 16:42 | W.ANESPOSTOP ---
Postoperative Evaluation Date, Time and Location Date Performed: 09/13/24 Time Performed: 16:32 Patient Location: PACU Vital Signs Most Recent Imported Vital Signs: Most Recent Vital Signs Temp Pulse Resp BP Pulse Ox 36.2 C L 75 25 H 130/73 97 09/13/24 16:09 09/13/24 16:30 09/13/24 16:30 09/13/24 16:26 09/13/24 16:30 Pain Score Most Recent Pain Score: Most Recent Pain Score Pain Level 6 09/13/24 16:26 Assessment Mental Status: Awake (Alert & Oriented to Patient Baseline) Airway and Respiratory Function: Patent airway with normal (patient baseline) respiratory exam Cardiovascular Function: Hemodynamically Stable Hydration Status: Adequately Hydrated Nausea & Vomiting: No Nausea or Vomiting Pain: Pain is tolerable per patient (3/10) Peripheral Nerve Block: Regional nerve block not resolved at time of post operative discharge
== END 2024-09-13 18:20 | disposition home or self-care (01) ==
LOC: SUR 10:45
PROVIDERS: PCP Internal Medicine; Visit Provider Student in an Organized Health Care Education/Training Program
PROC: (CPT 29827; principal; 2024-09-13 11:00)
DX: M75.112 Incomplete rotator cuff tear or rupture of left shoulder, not specified as traumatic (principal); S43.432A Superior glenoid labrum lesion of left shoulder, initial encounter; X58.XXXA Exposure to other specified factors, initial encounter; M75.42 Impingement syndrome of left shoulder; M75.22 Bicipital tendinitis, left shoulder; G89.18 Other acute postprocedural pain
CPT/HCPCS: 29827; 29828; 29823; 29826; 64415; J0131; J0665; J0666; J0690; J1100; J1885; J2250; J2371; J2405; J2704; J3010

== ENCOUNTER 2024-11-15 17:35 | Outpatient (REF) | payer BC, SELFPAY ==
[2024-11-15 19:22] LABS: ALT 42 U/L (14-59); AST 25 U/L (15-37); Albumin 3.8 g/dL (3.4-5.0); Alkaline Phosphatase 151 U/L (46-116); Anion Gap 8.8 mmol/L (3-11); BUN 18 mg/dL (7-18); Bilirubin, Total 0.4 mg/dL (0.2-1.0); CO2 29.2 mmol/L (21.0-32.0); CREATININE 0.8 mg/dL (0.55-1.02); Calcium 10.2 mg/dL (8.5-10.1); Calculated LDL 147 mg/dL (<100); Chloride 106 mmol/L (98-107); Cholesterol 232 mg/dL (<200); Estimated GFR 86.96 (mL/min/1.73m2); Glucose 96 mg/dL (74-106); HDL Cholesterol 60 mg/dL (>or=50); Potassium 4.6 mmol/L (3.5-5.1); Sodium 144 mmol/L (136-145); Triglyceride 127 mg/dL (<150)
[2024-11-16 09:09] LABS: GGT 98 U/L (5-55)
[2024-11-16 18:54] LABS: Hepatitis C Ab w Rflx HCV PCR Negative (Negative)
[2024-11-16 20:21] LABS: HIV-1/2 Ag & Ab Screen Negative (Negative)
== END 2024-11-15 17:36 | disposition home or self-care (01) ==
LOC: NCHCN 17:35
PROVIDERS: PCP Internal Medicine; Visit Provider Internal Medicine
DX: E78.5 Hyperlipidemia, unspecified (principal); Z11.4 Encounter for screening for human immunodeficiency virus [HIV]; N30.00 Acute cystitis without hematuria; R74.8 Abnormal levels of other serum enzymes
CPT/HCPCS: 80053; 80061; 86803; 87077; 87389; 82977; 87086; 87186